=== PATIENT | female | born 1965 | race Caucasian/White ===

== ENCOUNTER 2020-03-04 11:54 | Outpatient (REF) | payer OTHER, SELFPAY ==
--- NOTE | 2020-03-04 | US_ITS ---
EXAMINATION: PELVIC ULTRASOUND CLINICAL INFORMATION: Fibroids. COMPARISON: Previous pelvic ultrasound most recent October [address] of the abdomen and pelvis September 2018. TECHNIQUE: Transabdominal and transvaginal pelvic ultrasound was performed. Transvaginal exam was performed for better visualization of the uterus and ovaries. FINDINGS: The uterus is anteverted and retroflexed. The uterus is slightly enlarged and measures 11.6 x 6 x 7.4 cm. There are multiple uterine fibroids seen. Comparison with previous exams is difficult. There is a 2.2 x 2.3 x 2.1 cm fibroid in the uterine fundus that appears unchanged. There is an 8 x 9 x 8 mm fibroid in the anterior uterine body that appears unchanged. There is a 1.8 x 1.6 x 1.8 cm fibroid in the fundus. This measured 2.9 x 3.6 x 4.1 cm and appears decreased compared to previous exam. There is a 0.9 x 0.8 x 0.8 cm fibroid in the posterior uterine body near the endometrium. This appears decreased from 1.1 x 1.6 x 1 cm on previous exam. There is a 4.1 x 3.4 x 4.9 cm subserosal posterior lower uterine segment fibroid. This appears increased from 3.1 x 2.9 x 2.6 cm on previous exam. There is a 2.1 x 1.8 x 1.9 fibroid in the anterior uterine fundus. This was not appreciated on prior exam. Several fibroids seen on October 2019 exam are not appreciated on the current exam. Endometrial thickness is normal estimated at 1.1 cm. There are nabothian cysts in the cervix. The right ovary is seen transabdominally and is normal-appearing. The right ovary measures 3.1 x 2.3 x 2.7 cm. The left ovary is not seen. There is no fluid in the pelvis. US/US pelvic complete IMPRESSION: Enlarged uterus with multiple uterine fibroids, at least 6. Comparison with previous exams is difficult. A new fibroid is seen and several previously identified fibroids are not appreciated. There may be interval increase in the largest subserosal posterior lower uterine segment fibroid. Left ovary not seen. Normal-appearing right ovary.
== END 2020-03-04 11:55 | disposition home or self-care (01) ==
LOC: HO.US 11:54
PROVIDERS: PCP Internal Medicine; Visit Provider Obstetrics & Gynecology
DX: D21.9 Benign neoplasm of connective and other soft tissue, unspecified (principal)
CPT/HCPCS: 76830; 76856

== ENCOUNTER → 2020-03-18 11:04 | Outpatient (BNVA) | payer OTHER, SELFPAY | PROVIDERS: Visit Provider Obstetrics & Gynecology | DX: Z76.89 Persons encountering health services in other specified circumstances (principal) ==

== ENCOUNTER 2020-04-02 10:29 | Outpatient (REF) | payer OTHER, SELFPAY ==
--- NOTE | 2020-04-02 10:34 | MM_ITS ---
EXAMINATION: MM SCREENING DIGITAL BREAST TOMOSYNTHESIS, BILATERAL CLINICAL INFORMATION: Screening. Asymptomatic. The lifetime risk of breast cancer based on the Tyrer-Cuzick Model is 7%. COMPARISON: Mammography: 03/31/2019, 03/25/2018, 04/02/2017, 03/12/2017, 03/07/2016, 01/18/2015 TECHNIQUE: Digital breast tomosynthesis is performed in both the craniocaudal and mediolateral oblique views along with computer-aided detection (CAD). Synthesized 2D images are generated from the tomosynthesis. Additional exaggerated right CC view is provided. FINDINGS: There are scattered areas of fibroglandular density (ACR BI-RADS breast composition Category b). There are no significant masses, abnormal calcifications, or other abnormalities. Parenchymal pattern is similar to prior studies. There is no developing density. The axilla and skin contours are unremarkable. MM/MM tomosynthesis screening BI IMPRESSION: No mammographic evidence of malignancy. ASSESSMENT: BI-RADS 1: Negative RECOMMENDATION: Routine annual mammography screening. This patient's information was entered into a reminder system with a target due date for their next mammogram.
== END 2020-04-02 10:30 | disposition home or self-care (01) ==
LOC: HO.MAMMO 10:29
PROVIDERS: PCP Internal Medicine; Visit Provider Internal Medicine
DX: Z12.31 Encounter for screening mammogram for malignant neoplasm of breast (principal)
CPT/HCPCS: 77063; 77067

== ENCOUNTER 2020-04-04 10:49 | Outpatient (REF) | payer OTHER, SELFPAY ==
--- NOTE | 2020-04-04 10:51 | MR_ITS ---
EXAMINATION: MRI PELVIS WITH AND WITHOUT CONTRAST CLINICAL INFORMATION: Other ovarian cyst, left side. COMPARISON: No pertinent priors currently available. TECHNIQUE: Multiple routine MRI sequences through the pelvis were obtained on a high-field 1.5 Reina MRI before and after the uneventful administration of 6.5 mL of Gadavist gadolinium-based IV contrast. FINDINGS: UTERUS: Anteverted uterus has a normal configuration and measures 10.0 x 6.4 x 9.0 cm ([id number] x anterior-posterior x transverse). The endometrium is at most 8 mm in thickness, distorted by multiple leiomyomata. The junctional zone is normal in thickness. As seen on prior imaging studies, there are multiple leiomyomata. Most are well-circumscribed, hypointense on T1, and enhance homogeneously similar or slightly less than adjacent myometrium. These include a 2.2 cm subserosal leiomyoma of the cephalad anterior uterine body, a 2.1 cm intramural/subserosal leiomyoma of the right uterine fundus, a 2.2 cm submucosal leiomyoma of the posterior uterine body, deforming the endometrial canal as well as some smaller subcentimeter intramural leiomyomata. There are 2 exophytic leiomyomata. This includes a 3.4 cm leiomyoma exophytic from the anterior aspect of the uterine fundus. In addition, there is a heterogeneous mixed hypointense and hyperintense T2 signal 5.1 x 5.7 x 5.8 cm leiomyoma exophytic from the lower uterine segment. Because of its location and size, its possible this exophytic left lower uterine segment leiomyoma was palpable on physical exam. This leiomyoma was seen on the prior study 09/16/2018 and measured 4 x 2.6 x 3.1 cm at that time. CERVIX: There are nabothian cysts in the cervix. The cervical stroma is otherwise normal in appearance. VAGINA: Normal; no mass seen. RIGHT OVARY: The right ovary measures 3.7 x 3.1 x 2.6 cm. Normal physiologic follicular cysts are present. No adnexal mass. LEFT OVARY: Normal-appearing left ovary seen adjacent the exophytic left lower uterine segment leiomyoma. This measures 2.1 x 1.7 x 2.0 cm, seen in axial image series 6 image 5 and coronal series 7 image . KIDNEYS: Two normally positioned kidneys are seen. No hydronephrosis. T2 bright likely simple cysts are present. BLADDER: Urinary bladder normal. PELVIC FREE FLUID: No free fluid or ascites. LYMPH NODES: No pathologically enlarged lymph nodes. OSSEOUS STRUCTURES: No acute or suspicious osseous abnormalities. MR/MR pelvis wo/w con IMPRESSION: Normal-appearing ovaries bilaterally. The endometrial canal measures at most 8 mm. This is normal for a reproductive age female patient and is also within normal limits for a postmenopausal female patient without vaginal bleeding. Multiple leiomyomata are present including a 5.1 x 5.7 x 5.8 cm leiomyoma exophytic from the lower uterine segment. Because of its location and size, its possible this exophytic left lower uterine segment leiomyoma was palpable on physical exam. This leiomyoma was seen on the prior study 09/16/2018 and measured 4 x 2.6 x 3.1 cm at that time.
== END 2020-04-04 10:50 | disposition home or self-care (01) ==
LOC: HO.MRI 10:49
PROVIDERS: Visit Provider Obstetrics & Gynecology
DX: N83.292 Other ovarian cyst, left side (principal)
CPT/HCPCS: 72197; A9585

== ENCOUNTER 2020-04-16 13:40 | Outpatient (REF) | payer OTHER, SELFPAY | END 2020-04-16 13:41 | disposition home or self-care (01) | LOC: HO.LAB 13:40 | PROVIDERS: PCP Internal Medicine; Visit Provider Internal Medicine | DX: Z20.828 Contact with and (suspected) exposure to other viral communicable diseases (principal) | CPT/HCPCS: 36415; C9803; U0003 ==

== ENCOUNTER → 2020-04-25 11:49 | Outpatient (BNVA) | payer OTHER, SELFPAY | PROVIDERS: PCP Internal Medicine; Visit Provider Obstetrics & Gynecology | DX: Z76.89 Persons encountering health services in other specified circumstances (principal) ==

== ENCOUNTER 2020-05-01 10:43 | Outpatient (REF) | payer OTHER, SELFPAY ==
[2020-05-01 11:34] LABS: MANUAL DIFF FLAG NO
[2020-05-01 11:40] LABS: Glucose Urine UA NEG (NEG); Leukocyte Esterase Urine NEG (NEG); Nitrite Urine POS (NEG); Specific Gravity - Urine 1.025 (1.005-1.025); Urine Blood TRACE (NEG); Urine Ketones NEG (NEG); Urine Protein NEG (NEG-TRACE)
[2020-05-01 11:43] LABS: Appearance Urine HAZY; Color Urine YELLOW
[2020-05-01 11:45] LABS: Basophils Percent Auto 0.3 % (0-2); Eosinophils Percent Auto 0.2 % (0-4); Hemoglobin 13.1 g/dl (12.0-16.0); Imm Gran Abs Auto 0.02 X10*3/uL (0.00-0.03); Imm Gran Pct Auto 0.2 % (0.0-0.4); Lymphocytes Absolute Auto 1.5 X10*3/uL (1.2-4.9); Lymphocytes Percent Auto 14.3 % (20-40); Mean Corpuscular HGB Conc 32.8 g/dl (31.0-35.0); Mean Corpuscular Hemoglobin 29.4 pg (27.0-33.0); Mean Corpuscular Volume 89.9 fL (80-98); Mean Platelet Volume 11.9 fL (9.4-12.3); Monocytes Absolute Auto 0.5 X10*3/uL (0.1-1.2); Monocytes Percent Auto 4.5 % (2-11); Neutrophils Absolute Auto 8.4 X10*3/uL (2.0-8.3); Neutrophils Percent Auto 80.5 % (45-73); Platelet Count 233 X10*3/uL (160-400); Red Blood Count 4.45 X10*6/uL (4.20-5.50); Red Cell Distribution Width 13.3 % (11.0-16.0); White Blood Count 10.4 X10*3/uL (4.8-10.8)
[2020-05-01 12:00] LABS: Bacteria Urine 3+ /LPF; Squamous Epithelial Cell Urine 1+ /LPF
[2020-05-01 12:12] LABS: Alanine Aminotransferase 24 U/L (0-31); Albumin Level 4.4 g/dL (3.5-5.0); Alkaline Phosphatase 61 U/L (39-117); Aspartate Amino Transferase 16 U/L (5-31); Bilirubin Direct 0.2 mg/dL (0.0-0.5); Bilirubin Total 0.4 mg/dL (0.0-1.0); Total Protein 6.6 g/dL (6.5-8.0)
[2020-05-01 12:24] LABS: Alanine Aminotransferase 24 U/L (0-31); Albumin Level 4.4 g/dL (3.5-5.0); Alkaline Phosphatase 62 U/L (39-117); Anion Gap 13 (12-20); Aspartate Amino Transferase 15 U/L (5-31); Bilirubin Total 0.5 mg/dL (0.0-1.0); Blood Urea Nitrogen 20 mg/dL (9-16); Calcium 9.6 mg/dL (8.4-10.2); Carbon Dioxide 24 mmol/L (22-29); Chloride 105 mmol/L (96-108); Cholesterol 165 mg/dL; Estimated Glomerular Filt Rate > 60; Glucose Random 86 mg/dL (60-115); HDL Cholesterol 42 mg/dL; LDL Cholesterol Calculated 109 mg/dl; Potassium 4.2 mmol/l (3.3-5.1); Sodium 138 mmol/L (135-145); Total Protein 6.8 g/dL (6.5-8.0); Triglycerides 74 mg/dL
[2020-05-01 12:32] LABS: Free T4 (Free Thyroxine) 0.91 ng/dL (0.71-1.85); Thyroid Stimulating Hormone 1.17 uIU/mL (0.32-4.0); Vitamin D 25-OH Total 45.6 ng/mL (>30)
[2020-05-01 12:49] LABS: Folate 19.4 ng/mL (> or = 4.0); Vitamin B12 461 pg/mL (200-900)
== END 2020-05-01 10:44 | disposition home or self-care (01) ==
LOC: HO.LAB 10:43
PROVIDERS: PCP Internal Medicine; Visit Provider Psychiatry & Neurology Neurology
DX: G35 Multiple sclerosis (principal); E78.00 Pure hypercholesterolemia, unspecified
CPT/HCPCS: 36415; 80053; 80061; 80076; 81001; 82248; 82306; 82607; 82746; 84439; 84443; 85025

== ENCOUNTER 2020-06-17 15:47 | Outpatient (REF) | payer OTHER, SELFPAY ==
--- NOTE | ~2020-06-17 | MR_ITS ---
MRI OF THE BRAIN WITHOUT IV CONTRAST INDICATION: Multiple sclerosis. COMPARISON: Brain MRI 11/16/2017. TECHNIQUE: Multiplanar multisequence MR imaging of the brain was obtained without IV contrast. FINDINGS: Similar pattern extensive lesional burden throughout the supratentorial periventricular and subcortical white matter and to a lesser extent the infratentorial brain in keeping with the history of multiple sclerosis. No definite new lesions accounting for technical differences. Multiple chronic low T1 signal intensity lesions are again noted. There is no hydrocephalus, extra-axial surface collection, or herniation. The major flow voids at the skull base are preserved. There is no acute infarct on diffusion-weighted imaging. There is no intracranial hemorrhage on the gradient recalled echo acquisition. The cerebellar tonsils are normally positioned. The craniocervical junction is normal. Osseous marrow signal intensity is homogenous. The visualized soft tissues are unremarkable. Large retention cysts within the inferior aspect of the left maxillary sinus. The remaining paranasal sinuses are clear. Small anterior right frontal scalp lipoma is again noted. MR/MR head/brain wo con IMPRESSION: - Similar pattern extensive lesional burden throughout the supratentorial periventricular and subcortical white matter and to a lesser extent the infratentorial brain in keeping with the history of multiple sclerosis. No definite new lesions accounting for technical differences. - Large retention cysts within the inferior aspect of the left maxillary sinus.
== END 2020-06-17 15:48 | disposition home or self-care (01) ==
LOC: HO.MRI 15:47
PROVIDERS: Visit Provider Psychiatry & Neurology Neurology
DX: G35 Multiple sclerosis (principal)
CPT/HCPCS: 70551

== ENCOUNTER 2020-10-30 10:27 | Outpatient (REF) | payer OTHER, SELFPAY ==
[2020-10-30 11:28] LABS: MANUAL DIFF FLAG NO
[2020-10-30 11:37] LABS: Basophils Percent Auto 0.5 % (0-2); Eosinophils Absolute Auto 0.1 X10*3/uL (0.0-0.4); Eosinophils Percent Auto 1.6 % (0-4); Hematocrit 40.2 % (37-47); Imm Gran Abs Auto 0.03 X10*3/uL (0.00-0.03); Imm Gran Pct Auto 0.5 % (0.0-0.4); Lymphocytes Absolute Auto 1.4 X10*3/uL (1.2-4.9); Lymphocytes Percent Auto 23.8 % (20-40); Mean Corpuscular HGB Conc 32.3 g/dl (31.0-35.0); Mean Corpuscular Hemoglobin 29.9 pg (27.0-33.0); Mean Corpuscular Volume 92.4 fL (80-98); Mean Platelet Volume 11.6 fL (9.4-12.3); Monocytes Absolute Auto 0.4 X10*3/uL (0.1-1.2); Monocytes Percent Auto 6.8 % (2-11); Neutrophils Absolute Auto 3.8 X10*3/uL (2.0-8.3); Neutrophils Percent Auto 66.8 % (45-73); Platelet Count 222 X10*3/uL (160-400); Red Blood Count 4.35 X10*6/uL (4.20-5.50); Red Cell Distribution Width 13.1 % (11.0-16.0); White Blood Count 5.8 X10*3/uL (4.8-10.8)
== END 2020-10-30 10:28 | disposition home or self-care (01) ==
LOC: HO.LAB 10:27
PROVIDERS: PCP Internal Medicine; Visit Provider Psychiatry & Neurology Neurology
DX: G35 Multiple sclerosis (principal)
CPT/HCPCS: 36415; 85025

== ENCOUNTER → 2021-01-29 09:44 | Outpatient (BNVA) | payer OTHER, SELFPAY | PROVIDERS: PCP Internal Medicine; Visit Provider Obstetrics & Gynecology ==

== ENCOUNTER 2021-01-29 10:49 | Outpatient (REF) | payer OTHER, SELFPAY ==
[2021-01-29 11:52] LABS: Hematocrit 38.2 % (37-47); Hemoglobin 12.4 g/dl (12.0-16.0); Mean Corpuscular HGB Conc 32.5 g/dl (31.0-35.0); Mean Corpuscular Hemoglobin 29.7 pg (27.0-33.0); Mean Corpuscular Volume 91.6 fL (80-98); Mean Platelet Volume 11.5 fL (9.4-12.3); Platelet Count 228 X10*3/uL (160-400); Red Blood Count 4.17 X10*6/uL (4.20-5.50); Red Cell Distribution Width 13.2 % (11.0-16.0); White Blood Count 7.7 X10*3/uL (4.8-10.8)
[2021-01-29 12:34] LABS: HCG Quantitative < 2 mIU/mL; TSH reflex Free T4 1.05 uIU/mL (0.32-4.0)
[2021-01-30 05:11] LABS: CT PCR NOT DETECTED (Not Detect.); NG PCR NOT DETECTED (Not Detect.)
[2021-02-01 01:36] LABS: HPV mRNA E6/E7 rflx Not Detected (Not Detected)
== END 2021-01-29 10:50 | disposition home or self-care (01) ==
LOC: HO.LAB 10:49
PROVIDERS: Visit Provider Obstetrics & Gynecology
DX: Z01.419 Encounter for gynecological examination (general) (routine) without abnormal findings (principal); N93.9 Abnormal uterine and vaginal bleeding, unspecified
CPT/HCPCS: 36415; 84443; 84702; 85027; 87491; 87591; 87624; 88142

== ENCOUNTER 2021-02-19 10:47 | Outpatient (REF) | payer OTHER, SELFPAY ==
--- NOTE | ~2021-02-19 | US_ITS ---
EXAMINATION: US PELVIC AND TRANSVAGINAL CLINICAL INFORMATION: Abnormal uterine and vaginal bleeding. COMPARISON: Previous pelvic MRI March 2020 and pelvic ultrasound most recent February 2020 TECHNIQUE: Ultrasound of the pelvis is performed using both transabdominal and transvaginal transducers along with Doppler. Transvaginal imaging is performed due to inadequate visualization transabdominally. FINDINGS: The uterus is anteverted and retroflexed and measures 11.5 x 6.4 x 7.6 cm in dimension. There are multiple focal uterine lesions suggestive of fibroids. Comparison of fibroids with prior exam exam is difficult. The largest measures 5.7 x 4.9 x 5.5 cm in the left uterine body/lower uterine segment. This measured 4.1 x 3.4 x 4.9 cm on prior ultrasound exam and 5.1 x 5.7 x 5.8 cm on previous MRI and is probably not appreciably changed.. There is a 2.7 x 1.7 x 2.5 cm fibroid in the anterior upper uterine body, 1.9 x 1.7 x 1.8 cm fibroid in the anterior uterine fundus, 1.3 x 0.8 x 1.2 cm fibroid in the posterior uterine fundus. There is an 8 x 5 x 9 mm anterior uterine body submucosal fibroid adjacent to the endometrium. There is question of a complex nabothian cyst versus a fibroid in the cervix measuring 1 x 0.9 x 1.1 cm. Endometrial thickness is normal measuring 1 cm. The right ovary measures 1.9 x 1.5 x 1.4 cm. There is a 1.4 x 1.1 x 1.2 cm simple right adnexal or paraovarian cyst. The left ovary measures 3.2 x 2.1 x 2.9 cm. There is a 1.8 x 1.3 x 1 cm complex cyst in the left ovary with low-level internal echoes probably representing a corpus luteum. There is a 1.6 x 1.4 x 1.7 cm simple left adnexal or paraovarian cyst. There is a small amount of fluid in the pelvis. US/US pelvic and transvaginal IMPRESSION: Enlarged fibroid uterus. Comparison of fibroids with prior exams is difficult. Largest fibroid measures 5.7 x 4.9 x 5.5 cm in the left uterine body/lower uterine segment. Normal thickness endometrium. Bilateral small simple adnexal or paraovarian cysts which are new from previous exams..
== END 2021-02-19 10:48 | disposition home or self-care (01) ==
LOC: HO.US 10:47
PROVIDERS: Visit Provider Obstetrics & Gynecology
DX: N93.9 Abnormal uterine and vaginal bleeding, unspecified (principal)
CPT/HCPCS: 76830; 76856

== ENCOUNTER 2021-02-24 10:20 | Outpatient (REF) | payer OTHER, SELFPAY | END 2021-02-24 10:21 | disposition home or self-care (01) | LOC: HO.LAB 10:20 | PROVIDERS: PCP Internal Medicine; Visit Provider Obstetrics & Gynecology | DX: N93.9 Abnormal uterine and vaginal bleeding, unspecified (principal) | CPT/HCPCS: 58100; 88305 ==

== ENCOUNTER → 2021-03-12 11:04 | Outpatient (BNVA) | payer OTHER, SELFPAY | PROVIDERS: PCP Internal Medicine; Visit Provider Obstetrics & Gynecology | DX: N93.9 Abnormal uterine and vaginal bleeding, unspecified (principal); D21.9 Benign neoplasm of connective and other soft tissue, unspecified | CPT/HCPCS: 99212 ==

== ENCOUNTER 2021-04-07 10:13 | Outpatient (REF) | payer OTHER, SELFPAY ==
--- NOTE | ~2021-04-07 | MM_ITS ---
EXAMINATION: MM SCREENING DIGITAL BREAST TOMOSYNTHESIS, BILATERAL CLINICAL INFORMATION: Screening. Asymptomatic. The lifetime risk of breast cancer based on the Tyrer-Cuzick Model is 7%. COMPARISON: Mammography: 04/02/2020, 03/31/2019, 03/25/2018 TECHNIQUE: Digital breast tomosynthesis is performed in both the craniocaudal and mediolateral oblique views along with computer-aided detection (CAD). Synthesized 2D images are generated from the tomosynthesis. FINDINGS: There are scattered areas of fibroglandular density (ACR BI-RADS breast composition Category b). There are no significant masses, abnormal calcifications, or other abnormalities. Breast tissue composition borders on heterogeneously dense. Parenchymal pattern is similar to prior studies. MM/MM tomosynthesis screening BI IMPRESSION: No mammographic evidence of malignancy. ASSESSMENT: BI-RADS 1: Negative RECOMMENDATION: Routine annual mammography screening. This patient's information was entered into a reminder system with a target due date for their next mammogram.
== END 2021-04-07 10:14 | disposition home or self-care (01) ==
LOC: HO.MAMMO 10:13
PROVIDERS: PCP Internal Medicine; Visit Provider Obstetrics & Gynecology
DX: Z12.31 Encounter for screening mammogram for malignant neoplasm of breast (principal)
CPT/HCPCS: 77063; 77067

== ENCOUNTER 2021-08-20 11:24 | Outpatient (REF) | payer OTHER, SELFPAY ==
[2021-08-20 11:34] LABS: MANUAL DIFF FLAG NO
[2021-08-20 11:57] LABS: Basophils Percent Auto 0.6 % (0-2); Eosinophils Absolute Auto 0.1 X10*3/uL (0.0-0.4); Eosinophils Percent Auto 0.8 % (0-4); Hematocrit 37.9 % (37.0-47.0); Hemoglobin 12.4 g/dl (12.0-16.0); Imm Gran Abs Auto 0.01 X10*3/uL (0.00-0.03); Imm Gran Pct Auto 0.2 % (0.0-0.4); Lymphocytes Absolute Auto 1.4 X10*3/uL (1.2-4.9); Lymphocytes Percent Auto 22.9 % (20-40); Mean Corpuscular HGB Conc 32.7 g/dl (31.0-35.0); Mean Corpuscular Hemoglobin 29.4 pg (27.0-33.0); Mean Corpuscular Volume 89.8 fL (80.0-98.0); Mean Platelet Volume 11.2 fL (9.4-12.3); Monocytes Absolute Auto 0.4 X10*3/uL (0.1-1.2); Neutrophils Absolute Auto 4.3 x10*3/uL (2.0-8.3); Neutrophils Percent Auto 69.5 % (45-73); Platelet Count 225 X10*3/uL (160-400); Red Blood Count 4.22 X10*6/uL (4.20-5.50); Red Cell Distribution Width 13.4 % (11.0-16.0); White Blood Count 6.2 X10*3/uL (4.8-10.8)
[2021-08-20 12:21] LABS: Alanine Aminotransferase 12 U/L (0-31); Albumin Level 4.1 g/dL (3.5-5.0); Alkaline Phosphatase 67 U/L (39-117); Aspartate Amino Transferase 12 U/L (5-31); Bilirubin Direct 0.2 mg/dL (0.0-0.5); Bilirubin Total 0.4 mg/dL (0.0-1.0); Total Protein 6.7 g/dL (6.5-8.0)
== END 2021-08-20 11:25 | disposition home or self-care (01) ==
LOC: HO.LAB 11:24
PROVIDERS: Psychiatry & Neurology Neurology; PCP Internal Medicine; Visit Provider Internal Medicine
DX: G35 Multiple sclerosis (principal)
CPT/HCPCS: 36415; 80076; 85025

== ENCOUNTER 2021-10-01 09:44 | Outpatient (REF) | payer OTHER, SELFPAY ==
[2021-10-01 10:18] LABS: COVID-19 Test Positive (Negative); IDNOW Serial# 16C4AD1C
== END 2021-10-01 09:45 | disposition home or self-care (01) ==
LOC: HO.LAB 09:44
PROVIDERS: Visit Provider Internal Medicine
DX: Z20.822 Contact with and (suspected) exposure to COVID-19 (principal)
CPT/HCPCS: 87635; C9803

== ENCOUNTER 2021-11-13 13:47 | Outpatient (REF) | payer OTHER, SELFPAY ==
--- NOTE | ~2021-11-13 | US_ITS ---
EXAMINATION: US PELVIS CLINICAL INFORMATION: Abnormal uterine and vaginal bleeding. COMPARISON: None TECHNIQUE: Ultrasound of the pelvis is performed using both transabdominal and transvaginal transducers along with Doppler. Transvaginal imaging is performed due to inadequate visualization transabdominally. FINDINGS: UTERUS: The uterus is anteverted, retroflexed and measures 9.9 x 5.3 x 7.0 cm. The double wall endometrial thickness is 1.5 cm thick. The uterus is smooth in contour and has normal myometrial echogenicity. There are multiple uterine fibroids. 1. Lesion in the left mid body of uterus the largest measures 6.1 x 6.6 x 6.6 cm. Previously measured 5.7 x 4.9 x 5.5 cm. 2. Lesion in the posterior upper body of uterus measures 2.1 x 2.2 x 2.2 cm. It is new. 3. Lesion in the right fundal uterus measures 1.3 x 1.2 x 1.3 cm. Previously it measured 1.3 x 0.8 x 1.2 cm. 4. Lesion in the left fundus exophytic measures 2.8 x 2.1 x 2.4 cm. Previously measured 2.7 x 1.7 x 2.5 cm. 5. Lesion in the entry of fundus measures 2.6 x 2.4 x 2.6 cm. Previously it measured 1.9 x 1.7 x 1.8 cm. 6. Lesion in the lower left uterine body measures 3.2 x 2.8 x 3.1 cm. It is new. This could be two fibroids adjacent to each other or one lobulated fibroid. 7. Lesion in the anterior lower uterine segment measures 0.9 x 0.9 x 1.0 cm. Appears new. ADNEXA: Both ovaries are visualized. There is normal color flow to the adnexa. There is no ovarian torsion. There is no pelvic ascites or fluid collection. Right ovary measures 3.5 x 2.0 x 2.6 cm and volume 9.5 mL. There is an anechoic cyst measuring 1.6 x 1.5 x 1.6 cm. Medial to the ovary is a right paraovarian cyst measuring 1.2 x 0.8 x 1.1 cm. Previously right ovary measured 1.9 x 1.5 x 1.4 cm. There is a tubular anechoic structure in the adnexa question hydrosalpinx. The left ovary is seen transabdominally and measures 2.9 x 2.0 x 3.3 cm and volume 10.2 mL. There are 2 anechoic cysts measuring 1.1 x 1.2 x 1.2 cm and 0.7 x 0.7 x 1.4 cm. Previously left ovary measured 3.2 x 2.1 x 2.9 cm. There is no free fluid in cul-de-sac. US/US pelvic and transvaginal IMPRESSION: Multiple uterine fibroids some are new. Right ovarian cyst and a paraovarian cyst. Suspect small right hydrosalpinx. Multiple left ovarian cysts.
== END 2021-11-13 13:48 | disposition home or self-care (01) ==
LOC: HO.US 13:47
PROVIDERS: Visit Provider Obstetrics & Gynecology
DX: N93.9 Abnormal uterine and vaginal bleeding, unspecified (principal); D21.9 Benign neoplasm of connective and other soft tissue, unspecified
CPT/HCPCS: 76830; 76856

== ENCOUNTER 2021-12-17 11:00 | Outpatient (REF) | payer OTHER, SELFPAY ==
[2021-12-17 12:39] LABS: Hematocrit 40.2 % (37.0-47.0); Mean Corpuscular HGB Conc 32.3 g/dl (31.0-35.0); Mean Corpuscular Hemoglobin 29.1 pg (27.0-33.0); Mean Corpuscular Volume 90.1 fL (80.0-98.0); Mean Platelet Volume 10.9 fL (9.4-12.3); Platelet Count 215 X10*3/uL (160-400); Red Blood Count 4.46 X10*6/uL (4.20-5.50); Red Cell Distribution Width 14.1 % (11.0-16.0); White Blood Count 6.4 X10*3/uL (4.8-10.8)
[2021-12-17 13:26] LABS: HCG Quantitative < 2 mIU/mL; TSH reflex Free T4 1.27 uIU/mL (0.32-4.0)
[2021-12-17 18:49] LABS: CT PCR NOT DETECTED (Not Detect.); NG PCR NOT DETECTED (Not Detect.)
[2021-12-18 17:06] LABS: Follicle Stimulating Hormone 9.2 mIU/mL; Lutenizing Hormone 5.2 mIU/mL
== END 2021-12-17 11:01 | disposition home or self-care (01) ==
LOC: HO.LAB 11:00
PROVIDERS: PCP Internal Medicine; Visit Provider Obstetrics & Gynecology
DX: N93.9 Abnormal uterine and vaginal bleeding, unspecified (principal)
CPT/HCPCS: 36415; 58100; 81025; 83001; 83002; 84443; 84702; 85027; 87491; 87591; 88305; 99212

== ENCOUNTER 2021-12-17 13:24 | Outpatient (REF) | payer OTHER, SELFPAY | END 2021-12-17 13:25 | disposition home or self-care (01) | LOC: HO.LNP 13:24 | PROVIDERS: Visit Provider Obstetrics & Gynecology | DX: Z13.89 Encounter for screening for other disorder (principal) | CPT/HCPCS: 88305 ==

== ENCOUNTER → 2022-02-02 13:07 | Outpatient (BNVA) | payer OTHER, SELFPAY | PROVIDERS: PCP Internal Medicine; Visit Provider Obstetrics & Gynecology | DX: N93.9 Abnormal uterine and vaginal bleeding, unspecified (principal); D25.9 Leiomyoma of uterus, unspecified | CPT/HCPCS: 99212 ==

== ENCOUNTER 2022-04-09 09:50 | Outpatient (REF) | payer OTHER, SELFPAY ==
--- NOTE | ~2022-04-09 | MM_ITS ---
EXAMINATION: MM SCREENING DIGITAL BREAST TOMOSYNTHESIS, BILATERAL CLINICAL INFORMATION: Screening. Asymptomatic. The lifetime risk of breast cancer based on the Tyrer-Cuzick Model is 6.7%. COMPARISON: Mammography: April 07, 2021 and studies dating back to March 07, 2016 TECHNIQUE: Digital breast tomosynthesis is performed in both the craniocaudal and mediolateral oblique views along with computer-aided detection (CAD). Synthesized 2D images are generated from the tomosynthesis. FINDINGS: The breasts are heterogeneously dense, which may obscure small masses (ACR BI-RADS breast composition Category c). There are no significant masses, abnormal calcifications, or other abnormalities. MM/MM tomosynthesis screening BI IMPRESSION: No significant changes ASSESSMENT: BI-RADS 1: Negative RECOMMENDATION: Routine annual mammography screening. This patient's information was entered into a reminder system with a target due date for their next mammogram.
== END 2022-04-09 09:51 | disposition home or self-care (01) ==
LOC: HO.MAMMO 09:50
PROVIDERS: PCP Internal Medicine; Visit Provider Internal Medicine
DX: Z12.31 Encounter for screening mammogram for malignant neoplasm of breast (principal)
CPT/HCPCS: 77063; 77067

== ENCOUNTER 2022-06-02 16:42 | Outpatient (REF) | payer OTHER, SELFPAY ==
[2022-06-02 18:07] LABS: Influenza A PCR NEGATIVE (Negative); Influenza B PCR NEGATIVE (Negative); Resp Syncy Virus RNA Qual PCR NEGATIVE (Negative); SARS COV2 PCR INHOUSE NEGATIVE (Negative)
== END 2022-06-02 16:43 | disposition home or self-care (01) ==
LOC: HO.LNP 16:42
PROVIDERS: Visit Provider Internal Medicine
DX: Z20.822 Contact with and (suspected) exposure to COVID-19 (principal); R43.9 Unspecified disturbances of smell and taste
CPT/HCPCS: 0241U

== ENCOUNTER 2022-07-02 13:20 | Outpatient (REF) | payer OTHER, SELFPAY ==
[2022-07-02 13:29] LABS: MANUAL DIFF FLAG NO
[2022-07-02 14:04] LABS: Basophils Absolute Auto 0.1 X10*3/uL (0.0-0.2); Basophils Percent Auto 0.8 % (0-2); Eosinophils Absolute Auto 0.1 X10*3/uL (0.0-0.4); Hematocrit 41.6 % (37.0-47.0); Hemoglobin 13.7 g/dl (12.0-16.0); Imm Gran Abs Auto 0.02 X10*3/uL (0.00-0.03); Imm Gran Pct Auto 0.3 % (0.0-0.4); Lymphocytes Absolute Auto 1.9 X10*3/uL (1.2-4.9); Lymphocytes Percent Auto 30.9 % (20-40); Mean Corpuscular HGB Conc 32.9 g/dl (31.0-35.0); Mean Corpuscular Hemoglobin 29.8 pg (27.0-33.0); Mean Corpuscular Volume 90.6 fL (80.0-98.0); Mean Platelet Volume 11.6 fL (9.4-12.3); Monocytes Absolute Auto 0.4 X10*3/uL (0.1-1.2); Monocytes Percent Auto 6.9 % (2-11); Neutrophils Absolute Auto 3.7 x10*3/uL (2.0-8.3); Neutrophils Percent Auto 60.1 % (45-73); Platelet Count 238 X10*3/uL (160-400); Red Blood Count 4.59 X10*6/uL (4.20-5.50); Red Cell Distribution Width 12.5 % (11.0-16.0); White Blood Count 6.1 X10*3/uL (4.8-10.8)
[2022-07-02 14:48] LABS: Alanine Aminotransferase 13 U/L (0-31); Albumin Level 4.5 g/dL (3.5-5.0); Alkaline Phosphatase 65 U/L (39-117); Anion Gap 14 (12-20); Aspartate Amino Transferase 13 U/L (5-31); Bilirubin Total 0.7 mg/dL (0.0-1.0); Blood Urea Nitrogen 20 mg/dL (9-16); Calcium 10.1 mg/dL (8.4-10.2); Carbon Dioxide 25 mmol/L (22-29); Chloride 105 mmol/L (96-108); Cholesterol 198 mg/dL; Estimated Glomerular Filt Rate > 60; Glucose Random 73 mg/dL (60-115); HDL Cholesterol 48 mg/dL; LDL Cholesterol Calculated 136 mg/dl; Potassium 4.1 mmol/L (3.3-5.1); Sodium 140 mmol/L (135-145); Total Protein 6.9 g/dL (6.5-8.0); Triglycerides 70 mg/dL
[2022-07-02 15:02] LABS: Folate 15.5 ng/mL (> or = 4.0); Free T4 (Free Thyroxine) 0.91 ng/dL (0.71-1.85); Thyroid Stimulating Hormone 1.01 uIU/mL (0.32-4.0); Vitamin B12 593 pg/mL (200-900); Vitamin D 25-OH Total 64.7 ng/mL (>30)
== END 2022-07-02 13:21 | disposition home or self-care (01) ==
LOC: HO.LAB 13:20
PROVIDERS: PCP Internal Medicine; Visit Provider Internal Medicine
DX: E78.00 Pure hypercholesterolemia, unspecified (principal); R31.9 Hematuria, unspecified
CPT/HCPCS: 36415; 80053; 80061; 82306; 82607; 82746; 84439; 84443; 85025

== ENCOUNTER 2022-08-03 16:40 | Outpatient (REF) | payer OTHER, SELFPAY ==
--- NOTE | ~2022-08-03 | US_ITS ---
EXAMINATION: US PELVIS COMPLETE CLINICAL INFORMATION: Abnormal uterine bleeding COMPARISON: Pelvic ultrasound 11/13/2021 TECHNIQUE: Transabdominal and transvaginal imaging was performed. FINDINGS: The uterus is of normal size with multiple leiomyomas measuring 9.6 x 4.1 x 6.3 cm. A regular homogeneous endometrium is identified measuring 0.2 cm. A 1.2 cm hypoechoic lesion in the cervix without internal vascularity and possible increased through transmission may reflect a complex nabothian cyst previously 1.5 cm versus a cervical myoma. Multiple additional uterine myomas, difficult to accurately compare with prior given multiplicity. The largest include: A 2.1 cm intramural myoma in the left body of the uterus, previously 1.8 cm, a 2.1 cm submucosal myoma in the left fundus of the uterus, previously 2.8 cm, and a 5.6 cm transmural myoma in the left lower uterine segment, previously 6.6 cm. Few additional intramural and subserosal myomas measuring 1.5 cm or less are also seen, some may be new from prior. Both ovaries are of normal size and echogenicity. The right measures 2.0 x 1.1 x 1.6 cm for a volume of 1.8 mL. The left measures 1.6 x 1.0 x 1.4 cm for a volume of 1.2 mL. There is no pelvic free fluid. US/US pelvic and transvaginal IMPRESSION: Myomatous uterus, difficult to accurately compare to prior, with measurements as detailed above.
== END 2022-08-03 16:41 | disposition home or self-care (01) ==
LOC: HO.US 16:40
PROVIDERS: PCP Internal Medicine; Visit Provider Obstetrics & Gynecology
DX: D21.9 Benign neoplasm of connective and other soft tissue, unspecified (principal)
CPT/HCPCS: 76830; 76856

== ENCOUNTER → 2022-08-17 14:57 | Outpatient (BNVA) | payer OTHER, SELFPAY | PROVIDERS: PCP Internal Medicine; Visit Provider Obstetrics & Gynecology | DX: D25.9 Leiomyoma of uterus, unspecified (principal) | CPT/HCPCS: 99212 ==

== ENCOUNTER 2023-01-27 10:10 | Outpatient (AMB) | payer OTHER, SELFPAY ==
--- NOTE | 2023-01-27 12:38 | AM.OFFWIN_ITS ---
Intake Vital Signs 01/27/23 12:41 Height 5 ft 6 in Weight 135 lb BMI 21.8 BP 120/70 Blood Pressure Location Lt brachial Position Sitting Pulse 76 Pulse Source Pulse Oximeter Temp 96.2 F L Temp Source Temporal Artery Scan Pulse Oximetry (%) 98 Oxygen Delivery Method Room Air Intake Visit Reasons: EP Cough, Mucus, Sore throat (lobby) Intake Note: Pt is here c/o bad cough, chest congestion and sore throat for the past 3 days. Patient Tobacco Use Status: Former Tobacco user Allergies pineapple [PINEAPPLE] Allergy (Unknown, Verified 01/27/23 12:40) BLISTERS/SWELLING OF TONGUE Do you need a note to return to daycare/school/sports/work: No HPI EP Cough, Mucus, Sore throat (lobby) HPI Details 57-year-old [facility]day [facility] of nonproductive cough, nasal congestion, sore throat. Denies any fever or chills. Denies any known exposure to sick contacts. Has taken in-home COVID tests which were negative. Denies any shortness of breath or GI symptoms. [facility] Medical History Complex cyst of left ovary Ovarian cyst Hypercholesterolemia Insomnia Vitamin D deficiency Multiple sclerosis Surgical History History of surgery History of vaginal surgery Family History Father Acute CVA (cerebrovascular accident) Diabetes Mother No problems noted. Paternal Aunt Lung cancer Social History Housing: Apartment Alcohol intake: current Patient Tobacco Use Status: Former Tobacco user Tobacco use type: Cigarette Years Smoked: 2012 stopped e-Cigarette/Vaping Use: Never Used Second Hand Smoke Exposure: No Current occupational status: employed Cognitive needs: No Hearing needs: No Vision needs: Yes Female Reproductive History Menstrual Age of Menarche: 14 Review of Systems Const All systems reviewed & are unremarkable except as noted in HPI and below Physical Exam Vital Signs: Last Vital Signs Temp 96.2 F L 01/27/23 12:41 Pulse 76 01/27/23 12:41 BP 120/70 01/27/23 12:41 Pulse Ox 98 01/27/23 12:41 Oxygen Delivery Method Room Air 01/27/23 12:41 BMI result Body Mass Index 21.8 Const General: cooperative, healthy appearing and no acute distress HEENT Head: Yes normal to inspection Ears: hearing grossly normal bilaterally and TM's normal bilaterally General nose exam: Normal external nose present Face and sinus: Yes normal facial exam Mouth: Normal oral and palatal mucosa present Throat: Yes posterior oropharynx abnormal (Mild erythema) Neck Neck: Yes no lymphadenopathy Resp Effort & Inspection: normal respiratory effort Auscultation: clear to auscultation bilaterally Cardio Jugular venous distension: no JVD Palpation: normal PMI Rate: regular rate Rhythm: regular rhythm Skin General skin exam: no rashes or lesions noted Extrem General: Yes capillary refill normal and Yes no clubbing, cyanosis or edema Psych Appearance: grossly normal Mental Status: mental status grossly normal Speech and movement: Normal speech and movement present Results AMB Rapid Strep AMB Rapid Strep Negative Last Edit by Lisa Brand CMA on 01/27/23 12:55 Assessment & Plan Assessment & Plan (1) Viral upper respiratory infection: Code(s): J06.9 - Acute upper respiratory infection, unspecified Plan: Symptoms consistent with viral respiratory illness. Rapid strep was negative. We reviewed likely self-limiting nature of this illness. I have advised advise conservative measures with rest, hydration, [id number] Cold/flu medication, and I will prescribe her benzonatate to help the cough. We reviewed indications, use of this medication. If she does not improve with time and conservative measures, or if symptoms worsen or new symptoms develop, she should return to the clinic or PCP for further evaluation. She verbalizes understanding and agrees to plan. Orders: Orders AMB Rapid Strep Screen Today Z13.9 - Encounter for screening, unspecified Medications: New benzonatate 100 mg PO BID PRN 14 caps 0RF cough 7 days R05.9 - Cough, unspecified Coding Level of Care Code Est Pt Level 3 (13896) Diagnoses Viral upper respiratory infection J06.9
[2023-01-27 12:41] VITALS: BP 120/70; PULSE 76; TEMP 35.7; O2SAT 98; BMI 21.8
== END 2023-01-27 12:56 | disposition home or self-care (01) ==
PROVIDERS: PCP Internal Medicine; Visit Provider Nurse Practitioner Family
DX: J06.9 Acute upper respiratory infection, unspecified (principal); Z13.9 Encounter for screening, unspecified
CPT/HCPCS: 87880; 99213

== ENCOUNTER 2023-03-17 11:22 | Outpatient (REF) | payer OTHER, SELFPAY ==
--- NOTE | ~2023-03-17 | US_ITS ---
EXAMINATION: US PELVIS COMPLETE CLINICAL INFORMATION: Fibroids COMPARISON: Pelvic ultrasound 08/02/2022 TECHNIQUE: Transabdominal and transvaginal imaging was performed. FINDINGS: The uterus is enlarged with myomas measuring 11.1 x 4.9 x 6.9 cm. A regular homogeneous endometrium is identified measuring 1 cm. There are multiple uterine myomas including a 1.3 cm subserosal myoma in the posterior body, previously 1.2 cm, a 2.1 cm exophytic myoma of the left body of the uterus, previously 2.1 cm, a 2.5 cm intramural myoma in the left body of the uterus, previously 2.0 cm, a 2.2 cm submucosal myoma in the anterior left body of the uterus no from prior, and a 8.1 cm transmural myoma with a submucosal component in the left body of the uterus, previously 5.6 cm. Both ovaries are of normal size and echogenicity. The right measures 2.9 x 2.5 x 2.9 cm for a volume of 11 mL. The left measures 2.3 x 1.1 x 1.6 cm for a volume of 2.1 mL. There is no pelvic free fluid. US/US pelvic and transvaginal IMPRESSION: 1. Myomatous uterus with a dominant 8.1 cm transmural myoma with a submucosal component in the left body of the uterus, some of which are increased in size from prior others of which are similar and one of which is new as detailed above. 2. Normal sonographic appearance of the ovaries.
== END 2023-03-17 11:23 | disposition home or self-care (01) ==
LOC: HO.US 11:22
PROVIDERS: PCP Internal Medicine; Visit Provider Obstetrics & Gynecology
DX: D21.9 Benign neoplasm of connective and other soft tissue, unspecified (principal)
CPT/HCPCS: 76830; 76856

== ENCOUNTER 2023-05-08 09:07 | Outpatient (REF) | payer OTHER, SELFPAY | END 2023-05-08 09:08 | disposition home or self-care (01) | LOC: HO.MAMMO 09:07 | PROVIDERS: PCP Internal Medicine; Visit Provider Internal Medicine | DX: Z12.31 Encounter for screening mammogram for malignant neoplasm of breast (principal) | CPT/HCPCS: 77063; 77067 ==

== ENCOUNTER → 2023-05-08 09:15 | Outpatient (BNV) | payer OTHER, SELFPAY | PROVIDERS: PCP Internal Medicine; Visit Provider Radiology Diagnostic Radiology | DX: Z12.31 Encounter for screening mammogram for malignant neoplasm of breast (principal) | CPT/HCPCS: 77063; 77067 ==

== ENCOUNTER 2023-06-01 11:01 | Outpatient (AMB) | payer OTHER, SELFPAY ==
[2023-06-01 11:21] VITALS: BP 110/72; BMI 21.7
--- NOTE | 2023-06-01 11:21 | MHC.OFFVIS ---
Intake Vital Signs 06/01/23 11:21 Height 5 ft 6 in Weight 134 lb 7.712 oz BMI 21.7 BP 110/72 Intake Visit Reasons: Annual/Ultrasound follow up Intake Note: no concerns Manager Configuration Required: No Information Interpreted: non-clinical & clinical Principal Engineer: Principal Engineer Present (Zarina HATCH) Accompanied by: Self / Same As Patient Allergies pineapple [PINEAPPLE] Allergy (Unknown, Verified 06/01/23 11:22) BLISTERS/SWELLING OF TONGUE Post menopausal: Yes HPI HPI Comments History of Present Illness Details Presenting for annual exam. No complaints. No pelvic pressure, no vaginal bleeding or pelvic pain Last Pap/HPV was negative in 01/30 Last Mammogram was BI-RADS 1 in 06/05 The patient is due for a screening Colonoscopy Last pelvic ultrasound showed the following compared to ultrasound was done previously in 08/02: The uterus is enlarged with myomas measuring 11.1 x 4.9 x 6.9 cm. A regular homogeneous endometrium is identified measuring 1 cm. There are multiple uterine myomas including a 1.3 cm subserosal myoma in the posterior body, previously 1.2 cm, a 2.1 cm exophytic myoma of the left body of the uterus, previously 2.1 cm, a 2.5 cm intramural myoma in the left body of the uterus, previously 2.0 cm, a 2.2 cm submucosal myoma in the anterior left body of the uterus no from prior, and a 8.1 cm transmural myoma with a submucosal component in the left body of the uterus, previously 5.6 cm. Both ovaries are of normal size and echogenicity. The right measures 2.9 x 2.5 x 2.9 cm for a volume of 11 mL. The left measures 2.3 x 1.1 x 1.6 cm for a volume of 2.1 mL. There is no pelvic free fluid. [facility] Medical History Complex cyst of left ovary Ovarian cyst Hypercholesterolemia Insomnia Vitamin D deficiency Multiple sclerosis Surgical History History of surgery History of vaginal surgery Family History Father Acute CVA (cerebrovascular accident) Diabetes Mother No problems noted. Paternal Aunt Lung cancer Social History Housing: Apartment Alcohol intake: current Patient Tobacco Use Status: Former Tobacco user Tobacco use type: Cigarette Years Smoked: 2013 stopped e-Cigarette/Vaping Use: Never Used Second Hand Smoke Exposure: No Current occupational status: employed Cognitive needs: No Hearing needs: No Vision needs: Yes Female Reproductive History Menstrual Age of Menarche: 14 Menopause type: natural Date of last pap smear: 01/30/21 Date of Mammogram: 05/08/23 Review of Systems Const All systems reviewed & are unremarkable except as noted in HPI and below Card Reports as per HPI Resp Reports as per HPI GI Reports as per HPI and Reports no additional complaints Reports as per HPI Physical Exam Vital Signs: Last Vital Signs BP 110/72 06/01/23 11:21 BMI result Body Mass Index 21.7 Const General: cooperative, healthy appearing and comfortable Chest Chest palpation & inspection: normal inspection of the chest and normal palpation of entire chest wall Breast/axilla inspection: normal inspection of the breasts and normal inspection of the axillae Breast/axilla palpation: normal palpation of the breasts, normal palpation of the axillae and no axillary lymphadenopathy Resp Effort & Inspection: normal respiratory effort Auscultation: clear to auscultation bilaterally Percussion: percussion normal Cardio Palpation: normal PMI Rate: regular rate Rhythm: regular rhythm Heart sounds: no murmurs and no rubs Peripheral pulses: Peripheral pulses 2+ throughout GI Inspection: Yes normal to inspection Palpation (GI): Soft to palpation, nontender, no guarding, not rigid and No hepatosplenomegaly present Percussion: Yes normal to percussion Auscultation: normal bowel sounds Rectal Exam - Female: deferred General: Yes bladder normal to palpation External Female Exam: No lesion Speculum Exam - Vagina: normal appearance of the vagina, normal palpation, normal vaginal discharge and not erythematous Speculum Exam - Cervix: normal appearance of the cervix and normal palpation Bimanual exam- vagina & uterus: normal bimanual exam, normal palpation, uterine size normal, bladder normal to palpation, consistency normal and normal palpation Bimanual Exam- Adnexa, other: normal adnexae, no masses and no tenderness Assessment & Plan Assessment & Plan (1) Well woman exam: Code(s): Z01.419 - Encounter for gynecological examination (general) (routine) without abnormal findings Plan: Co testing not indicated this year. Counseled the patient about the recommended dietary allowance of 1200 mg of Calcium & 600 IU of vitamin D. Instructions given to patient to schedule next screening Mammogram in 06/06. The patient was referred to GI for screening colonoscopy . The patient was instructed to perform monthly self-breast exams and schedule annual exam in a year. All questions answered and the patient verbalized understanding. (2) Myoma: Comment: Enlarging in menopause Code(s): D21.9 - Benign neoplasm of connective and other soft tissue, unspecified Plan: Discussed with the patient the findings on pelvic ultrasound & the risk of myosarcoma; discussed with the patient the options of treatment including expectant management versus hysterectomy; the pros and cons, risks benefits of each approach were discussed with the patient who decided to proceed with surgical management. Will refer to [facility] for further management. Orders: Referrals Gastroenterology Referral Z12.11 - Encounter for screening for malignant neoplasm of colon Gynecologic Oncology Referral D21.9 - Benign neoplasm of connective and other soft tissue, unspecified Coding Level of Care Code Est Pt Prev Care 40-64y(78652) Diagnoses Well woman exam Z01.419 Myoma D21.9
== END 2023-06-01 11:48 | disposition home or self-care (01) ==
LOC: HO.HWS 11:01
PROVIDERS: PCP Internal Medicine; Visit Provider Obstetrics & Gynecology
DX: Z01.419 Encounter for gynecological examination (general) (routine) without abnormal findings (principal); D21.9 Benign neoplasm of connective and other soft tissue, unspecified
CPT/HCPCS: 99396

== ENCOUNTER → 2023-06-01 11:01 | Outpatient (BNVA) | payer OTHER, SELFPAY | PROVIDERS: PCP Internal Medicine; Visit Provider Obstetrics & Gynecology | DX: Z01.419 Encounter for gynecological examination (general) (routine) without abnormal findings (principal); D21.9 Benign neoplasm of connective and other soft tissue, unspecified | CPT/HCPCS: 99396 ==

== ENCOUNTER 2023-06-17 13:50 | Outpatient (AMB) | payer OTHER, SELFPAY ==
--- NOTE | 2023-06-17 13:55 | A.OFFVIS_ITS ---
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 The patient was counseled about different options of treatment including expectant management(six-month ultrasound follow-up) and surgical treatment, the patient elected to proceed with expectant management since she has no abnormal uterine bleeding and no bulk symptoms. In March of 2023 pelvic ultrasound showed endometrial thickness of 1 cm so EMB was done and the pathology breast at [facility] came back as the following: Endometrium with tubal change and small focus of crowded glands with altered cytological features which raises the possibility of endometrial intraoperative neoplasia, endometrial curettage was recommended [facility] Medical History Complex cyst of left ovary Ovarian cyst Hypercholesterolemia Insomnia Vitamin D deficiency Multiple sclerosis Surgical History History of surgery History of vaginal surgery Family History Father Acute CVA (cerebrovascular accident) Diabetes Mother No problems noted. Paternal Aunt Lung cancer Social History Housing: Apartment Alcohol intake: current Patient Tobacco Use Status: Former Tobacco user Tobacco use type: Cigarette Years Smoked: 2012 stopped e-Cigarette/Vaping Use: Never Used Second Hand Smoke Exposure: No Current occupational status: employed Cognitive needs: No Hearing needs: No Vision needs: Yes Female Reproductive History Menstrual Age of Menarche: 14 Date of last menstrual period: 02/08/20 Total pregnancies: 2 Full term: 2 Review of Systems Card Reports as per HPI and Reports no additional complaints Resp Reports as per HPI and Reports no additional complaints GI Reports as per HPI and Reports no additional complaints Reports as per HPI Physical Exam Vital Signs: Last Vital Signs BP 110/70 06/17/23 13:58 BMI result Body Mass Index 21.7 Const General: cooperative, healthy appearing and comfortable Chest Chest palpation & inspection: normal inspection of the chest and normal palpation of entire chest wall Breast/axilla inspection: normal inspection of the breasts and normal inspection of the axillae Breast/axilla palpation: normal palpation of the breasts, normal palpation of the axillae and no axillary lymphadenopathy Resp Effort & Inspection: normal respiratory effort Auscultation: clear to auscultation bilaterally Percussion: percussion normal Cardio Palpation: normal PMI Rate: regular rate Rhythm: regular rhythm Heart sounds: no murmurs and no rubs Peripheral pulses: Peripheral pulses 2+ throughout GI Inspection: Yes normal to inspection Palpation (GI): Soft to palpation, nontender, no guarding, not rigid and No hepatosplenomegaly present Percussion: Yes normal to percussion Auscultation: normal bowel sounds Rectal Exam - Female: deferred Assessment & Plan Assessment & Plan (1) Myoma: Comment: Enlarging Code(s): D21.9 - Benign neoplasm of connective and other soft tissue, unspecified Plan: The patient had a consult with [facility] regarding growing myomas and elected to proceed with expectant management, the plan is to repeat ultrasound in 6 months and an ultrasound follow-up appointment to be scheduled with Dr. Richardson (2) Endometrial intraepithelial neoplasia (EIN): Comment: EMB pathology suspicious of EIN Code(s): N85.02 - Endometrial intraepithelial neoplasia [EIN] Plan: Discussed with the patient the pathology showing signs of possible E IN, recommended hysteroscopy D&C possible polypectomy myomectomy. Discussed with the patient the procedure , all benefits and risks including but not limited to inability to complete the procedure , insufficient endometrial tissue for a complete evaluation of the endometrial cavity , bleeding, infection, possible need for blood transfusion with all its risk ( HIV,syphilis, Hepatitis, anaphylaxis shock, others..), injury to bladder, rectum, possible need for laparoscopy/laparotomy or hysterectomy. The patient verbalized understanding and signed the consent. Instructions given the patient to schedule a 2 week postoperative appointment Coding Level of Care Code Est Pt Level 3 (69822) Diagnoses Myoma D21.9 Endometrial intraepithelial neoplasia (EIN) N85.02
[2023-06-17 13:58] VITALS: BP 110/70; BMI 21.7
== END 2023-06-17 15:53 | disposition home or self-care (01) ==
PROVIDERS: PCP Internal Medicine; Visit Provider Obstetrics & Gynecology
DX: D21.9 Benign neoplasm of connective and other soft tissue, unspecified (principal); N85.02 Endometrial intraepithelial neoplasia [EIN]
CPT/HCPCS: 99213

== ENCOUNTER → 2023-06-17 13:50 | Outpatient (BNVA) | payer OTHER, SELFPAY | PROVIDERS: PCP Internal Medicine; Visit Provider Obstetrics & Gynecology | DX: N85.02 Endometrial intraepithelial neoplasia [EIN] (principal) | CPT/HCPCS: 99212 ==

== ENCOUNTER 2023-06-23 08:15 | Day surgery (SDC) | payer OTHER, SELFPAY ==
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
[2023-06-23 09:16] VITALS: BMI 23.6
[2023-06-23 09:18] VITALS: BP 113/55; PULSE 72; RESP 18; TEMP 36.4; O2SAT 99
[2023-06-23] MEDS: Lactated Ringers 1,000 ML 100 ML IVCONT (09:37)
[2023-06-23 10:05] LABS: UPreg QC Valid YES; Urine Pregnancy NEGATIVE (NEGATIVE)
--- NOTE | 2023-06-23 10:30 | MHC.SHP ---
Pre-Procedural Eval Section A - 24 Hr Update-Section A only Date of Service: 06/23/23 The patient is an INPATIENT: No Changes since office visit: No Cold of Flu in the past 2 weeks, No New Medical Problems, No Changes in Medication and No Patient answered all questions The patient has been examined within 24 hours of the surgical procedure. The History & Physical has been completed within 30 days and I have reviewed it.: Yes Section B - Complete if H&P > 30 days Chief Complaint: Abnormal uterine and vaginal bleeding, Allergies: Allergies Allergy/AdvReac Type Severity Reaction Status Date / Time pineapple [PINEAPPLE] Allergy Unknown BLISTERS/SWELLING Verified 06/01/23 11:22 OF TONGUE Plan Diagnosis/Plan: Unchanged I have reviewed the history and physical and performed a pertinent physical examination on my patient. No changes have occurred unless specified. Time Spent With Patient Time: Total time managing care of this patient today ____ minutes.
[2023-06-23 11:08] VITALS: BP 110/60; PULSE 63; RESP 12; TEMP 36.1; O2SAT 100
--- NOTE | 2023-06-23 11:08 | P.BOP_ITS ---
Brief Operative Note Date of Service: 06/23/23 Pre-op diagnosis: Thickened endometrium by ultrasound EMB pathology suspicious of EIN Post-op diagnosis: same (Normal endometrial cavity ) Procedure: Hysteroscopy D&C Surgeon: Vinh Godinez MD Anesthesia: GLMA Was an Internal Medicine Physician used for this Procedure?: No Estimated blood loss (mL): 0 Pathology: other (Endometrial Scrapping. ) Condition: stable Disposition: PACU
--- NOTE | 2023-06-23 11:09 | W.PM.OPN ---
Operative Note Operative Note Date of Service: 06/23/23 Narrative: Preop Diagnosis: Thickened endometrium by ultrasound, endometrial pathology suspicious of EIN Operation: Diagnostic Hysteroscopy, Dilataion & Curettage Post Op Diagnosis: Normal endometrial and endocervical cavity, no evidence of pathology QBL: Minimal Anesthesia: GLMA Surgeon: Vinh Godinez MD Pulpwood Contractor: None Complication: None Pathology: Endometrial Scrapings Procedure: The patient was put in the dorsal lithotomy position, scrubbed, and draped in the usual manner. A sterile speculum was inserted in the patient's vagina. The anterior lip of the cervix was grasped with a single tooth tenaculum. The cervix was dilated up to 5 mm, then the scope was inserted in the patient's uterus. Inspection revealed normal endocervical & endometrial cavity with no evidence of pathology. The scope was taken out of the uterine cavity , then sharp curetting was carried on with no complications. At the end of the procedure, all instruments were taken out of the patient uterine and vaginal cavity. The single tooth tenaculum was removed and homeostasis was assured using pressure. The patient tolerated the procedure well and was transferred to the PACU in a stable condition.
[2023-06-23 11:23] VITALS: BP 109/47; PULSE 75; RESP 16; TEMP 36.6; O2SAT 98
== END 2023-06-23 12:03 | disposition home or self-care (01) ==
PROVIDERS: PCP Internal Medicine; Visit Provider Obstetrics & Gynecology
PROC: 0UDB8ZZ Extraction of Endometrium, Via Natural or Artificial Opening Endoscopic (ICD-10-PCS; CPT 58558; principal; 2023-06-23 10:30)
DX: N93.9 Abnormal uterine and vaginal bleeding, unspecified (principal); D21.9 Benign neoplasm of connective and other soft tissue, unspecified; G35 Multiple sclerosis; N85.02 Endometrial intraepithelial neoplasia [EIN]; E78.00 Pure hypercholesterolemia, unspecified; E55.9 Vitamin D deficiency, unspecified; N83.202 Unspecified ovarian cyst, left side; Z87.891 Personal history of nicotine dependence
CPT/HCPCS: 58558; 81025; 88305; J1885; J2250; J2704; J3010

== ENCOUNTER → 2023-06-23 08:15 | Outpatient (BNV) | payer OTHER, SELFPAY | PROVIDERS: PCP Internal Medicine; Visit Provider Obstetrics & Gynecology | DX: N93.9 Abnormal uterine and vaginal bleeding, unspecified (principal) | CPT/HCPCS: 58558 ==

== ENCOUNTER 2023-07-01 13:28 | Outpatient (AMB) | payer OTHER, SELFPAY ==
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
[2023-07-01 13:32] VITALS: BP 110/66; BMI 21.6
== END 2023-07-01 13:52 | disposition home or self-care (01) ==
PROVIDERS: PCP Internal Medicine; Visit Provider Obstetrics & Gynecology
DX: N93.9 Abnormal uterine and vaginal bleeding, unspecified (principal)
CPT/HCPCS: 99213

== ENCOUNTER → 2023-07-01 13:28 | Outpatient (BNVA) | payer OTHER, SELFPAY | PROVIDERS: PCP Internal Medicine; Visit Provider Obstetrics & Gynecology | DX: N93.9 Abnormal uterine and vaginal bleeding, unspecified (principal) | CPT/HCPCS: 99212 ==

== ENCOUNTER 2023-08-13 10:53 | Outpatient (AMB) | payer OTHER, SELFPAY ==
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
[2023-08-13 11:00] VITALS: BP 113/69; BMI 22.8
== END 2023-08-13 12:11 | disposition home or self-care (01) ==
PROVIDERS: PCP Internal Medicine; Visit Provider Nurse Practitioner Family
DX: Z12.11 Encounter for screening for malignant neoplasm of colon (principal); Z01.818 Encounter for other preprocedural examination
CPT/HCPCS: 99203

== ENCOUNTER → 2023-08-13 10:53 | Outpatient (BNVA) | payer OTHER, SELFPAY | PROVIDERS: PCP Internal Medicine; Visit Provider Nurse Practitioner Family | DX: Z01.818 Encounter for other preprocedural examination (principal) | CPT/HCPCS: 99202 ==

== ENCOUNTER 2023-08-19 12:58 | Outpatient (AMB) | payer OTHER, SELFPAY ==
[2023-08-19 12:59] VITALS: BP 110/60; BMI 22.4
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
== END 2023-08-19 13:40 | disposition home or self-care (01) ==
LOC: HO.HWS 12:58
PROVIDERS: PCP Internal Medicine; Visit Provider Obstetrics & Gynecology
DX: N85.02 Endometrial intraepithelial neoplasia [EIN] (principal); D25.9 Leiomyoma of uterus, unspecified
CPT/HCPCS: 58100; 99213

== ENCOUNTER 2023-08-19 12:58 | Outpatient (REF) | payer OTHER, SELFPAY | END 2023-08-19 12:59 | disposition home or self-care (01) | LOC: HO.LNP 12:58 | PROVIDERS: PCP Internal Medicine; Visit Provider Obstetrics & Gynecology | DX: N85.02 Endometrial intraepithelial neoplasia [EIN] (principal) | CPT/HCPCS: 58100; 88305; 99212 ==

== ENCOUNTER 2023-08-26 16:24 | Outpatient (REF) | payer OTHER, SELFPAY ==
--- NOTE | ~2023-08-26 | US_ITS ---
EXAMINATION: US PELVIS CLINICAL INFORMATION: Leiomyomas. COMPARISON: Ultrasound pelvis 03/17/2023. TECHNIQUE: Ultrasound of the pelvis is performed using both transabdominal and transvaginal transducers along with Doppler. Transvaginal imaging is performed due to inadequate visualization transabdominally. FINDINGS: Uterus: The uterus is anteverted and measures 11.7 x 5.7 x 5.8 cm for a volume of 202 mL. Prior uterine volume was about the same at 197 mL. The double wall endometrial thickness is 3 mm. Three uterine fibroids are seen on the left of the uterus, the largest measuring 8.7 x 6.5 x 6.8 cm (previously 7.3 x 4.9 x 8.1 cm). The other 2 measure 2.6 and 2.0 cm. Compared to the prior study, these fibroids have increased in size slightly. Adnexa: Neither ovary could be seen. No free fluid seen in the cul-de-sac. US/US pelvic and transvaginal IMPRESSION: Uterine fibroids have increased in size slightly.
== END 2023-08-26 16:25 | disposition home or self-care (01) ==
LOC: HO.US 16:24
PROVIDERS: PCP Internal Medicine; Visit Provider Obstetrics & Gynecology
DX: D21.9 Benign neoplasm of connective and other soft tissue, unspecified (principal)
CPT/HCPCS: 76830; 76856

== ENCOUNTER 2023-09-15 12:56 | Outpatient (AMB) | payer OTHER, SELFPAY ==
[2023-09-15 13:00] VITALS: BP 124/76; BMI 22.4
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
== END 2023-09-15 13:47 | disposition home or self-care (01) ==
PROVIDERS: PCP Internal Medicine; Visit Provider Obstetrics & Gynecology
DX: N93.9 Abnormal uterine and vaginal bleeding, unspecified (principal); D21.9 Benign neoplasm of connective and other soft tissue, unspecified
CPT/HCPCS: 99213

== ENCOUNTER → 2023-09-15 12:56 | Outpatient (BNVA) | payer OTHER, SELFPAY | PROVIDERS: PCP Internal Medicine; Visit Provider Obstetrics & Gynecology | DX: N93.9 Abnormal uterine and vaginal bleeding, unspecified (principal); D21.9 Benign neoplasm of connective and other soft tissue, unspecified | CPT/HCPCS: 99212 ==

== ENCOUNTER 2023-09-18 13:41 | Outpatient (AMB) | payer OTHER, SELFPAY ==
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
[2023-09-18 13:49] VITALS: BP 122/70; PULSE 72; TEMP 36.6; O2SAT 99; BMI 22.3
== END 2023-09-18 15:08 | disposition home or self-care (01) ==
PROVIDERS: PCP Internal Medicine; Visit Provider Physician Assistant Medical
DX: R20.0 Anesthesia of skin (principal); R20.2 Paresthesia of skin
CPT/HCPCS: 99051; 99214

== ENCOUNTER 2023-09-18 14:36 | Outpatient (REF) | payer OTHER, SELFPAY ==
--- NOTE | ~2023-09-18 | XR_ITS ---
EXAMINATION: XR HAND/WRIST, RIGHT CLINICAL INFORMATION: Right wrist and hand numbness for 2 weeks COMPARISON: None TECHNIQUE: PA, lateral, and oblique views of the right hand and wrist. FINDINGS: The bones and soft tissues are normal. No fracture. Alignment is anatomic. Joint spaces are maintained. No erosions or soft tissue calcifications. XR/XR hand wrist RT IMPRESSION: Normal radiographs of the hand and wrist.
== END 2023-09-18 14:37 | disposition home or self-care (01) ==
LOC: HO.HMGCX 14:36
PROVIDERS: PCP Internal Medicine; Visit Provider Physician Assistant Medical
DX: R20.8 Other disturbances of skin sensation (principal)
CPT/HCPCS: 73110; 73130

== ENCOUNTER 2023-10-16 09:22 | Outpatient (AMB) | payer OTHER, SELFPAY ==
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
[2023-10-16 09:25] VITALS: BP 118/80; PULSE 74; TEMP 36.9; O2SAT 98; BMI 23.1
== END 2023-10-16 10:31 | disposition home or self-care (01) ==
PROVIDERS: PCP Internal Medicine; Visit Provider Physician Assistant Medical
DX: H65.02 Acute serous otitis media, left ear (principal)
CPT/HCPCS: 99051; 99214

== ENCOUNTER 2023-10-16 15:16 | Outpatient (REF) | payer OTHER, SELFPAY ==
[2023-10-16 16:12] LABS: Influenza A PCR NEGATIVE (Negative); Influenza B PCR NEGATIVE (Negative); Resp Syncy Virus RNA Qual PCR NEGATIVE (Negative); SARS COV2 PCR INHOUSE NEGATIVE (Negative)
== END 2023-10-16 15:17 | disposition home or self-care (01) ==
LOC: HO.LNP 15:16
PROVIDERS: Visit Provider Physician Assistant Medical
DX: J06.9 Acute upper respiratory infection, unspecified (principal)
CPT/HCPCS: 0241U

== ENCOUNTER 2023-11-29 10:18 | Outpatient (AMB) | payer OTHER, SELFPAY ==
[2023-11-29 10:19] VITALS: BP 112/68; PULSE 71; O2SAT 98; BMI 22.8
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
== END 2023-11-29 10:58 | disposition home or self-care (01) ==
PROVIDERS: PCP Internal Medicine
DX: Z00.00 Encounter for general adult medical examination without abnormal findings (principal); G35 Multiple sclerosis; E78.00 Pure hypercholesterolemia, unspecified; D21.9 Benign neoplasm of connective and other soft tissue, unspecified; N85.02 Endometrial intraepithelial neoplasia [EIN]
CPT/HCPCS: 99396

== ENCOUNTER 2023-11-29 11:14 | Outpatient (REF) | payer OTHER, SELFPAY ==
[2023-11-29 11:43] LABS: MANUAL DIFF FLAG NO
[2023-11-29 12:00] LABS: Basophils Percent Auto 0.5 % (0-2); Eosinophils Percent Auto 0.7 % (0-4); Hematocrit 40.4 % (37.0-47.0); Hemoglobin 13.4 g/dl (12.0-16.0); Imm Gran Abs Auto 0.02 X10*3/uL (0.00-0.03); Imm Gran Pct Auto 0.3 % (0.0-0.4); Lymphocytes Absolute Auto 1.7 X10*3/uL (1.2-4.9); Lymphocytes Percent Auto 29.4 % (20-40); Mean Corpuscular HGB Conc 33.2 g/dl (31.0-35.0); Mean Corpuscular Hemoglobin 29.4 pg (27.0-33.0); Mean Corpuscular Volume 88.6 fL (80.0-98.0); Mean Platelet Volume 10.3 fL (9.4-12.3); Monocytes Absolute Auto 0.3 X10*3/uL (0.1-1.2); Monocytes Percent Auto 4.3 % (2-11); Neutrophils Absolute Auto 3.8 x10*3/uL (2.0-8.3); Neutrophils Percent Auto 64.8 % (45-73); Platelet Count 315 X10*3/uL (160-400); Red Blood Count 4.56 X10*6/uL (4.20-5.50); Red Cell Distribution Width 13.1 % (11.0-16.0); White Blood Count 5.9 X10*3/uL (4.8-10.8)
[2023-11-29 12:37] LABS: Alanine Aminotransferase 16 U/L (0-31); Albumin Level 4.5 g/dL (3.5-5.0); Alkaline Phosphatase 83 U/L (39-117); Anion Gap 11 (12-20); Aspartate Amino Transferase 14 U/L (5-31); Bilirubin Total 0.4 mg/dL (0.0-1.0); Blood Urea Nitrogen 19 mg/dL (9-16); Calcium 10.6 mg/dL (8.4-10.2); Carbon Dioxide 25 mmol/L (22-29); Chloride 109 mmol/L (96-108); Cholesterol 200 mg/dL (<200); Estimated Glomerular Filt Rate > 60; Glucose Random 97 mg/dL (60-115); HDL Cholesterol 38 mg/dL (>40); LDL Cholesterol Calculated 142 mg/dL (<100); Potassium 4.3 mmol/L (3.3-5.1); Sodium 141 mmol/L (135-145); Total Protein 7.2 g/dL (6.5-8.0); Triglycerides 103 mg/dL (<150)
[2023-11-29 12:48] LABS: Free T4 (Free Thyroxine) 0.81 ng/dL (0.71-1.85); TSH reflex Free T4 1.09 uIU/mL (0.32-4.0)
[2023-11-29 12:58] LABS: Folate 11.6 ng/mL (> or = 4.0); Vitamin B12 645 pg/mL (200-900)
[2023-12-04 13:34] LABS: Vitamin D 25-OH, D2 <4 ng/mL; Vitamin D 25-OH, D3 75 ng/mL; Vitamin D 25-OH, Total 75 ng/mL (30-100)
== END 2023-11-29 11:15 | disposition home or self-care (01) ==
LOC: HO.LAB 11:14
DX: Z00.00 Encounter for general adult medical examination without abnormal findings (principal)
CPT/HCPCS: 36415; 80053; 80061; 82306; 82607; 82746; 84439; 84443; 85025

== ENCOUNTER → 2024-01-28 11:47 | Outpatient (BNV) | payer OTHER, SELFPAY | PROVIDERS: PCP Internal Medicine; Visit Provider Internal Medicine Gastroenterology | DX: Z12.11 Encounter for screening for malignant neoplasm of colon (principal); Z86.0101 Personal history of adenomatous and serrated colon polyps; K63.5 Polyp of colon; K57.30 Diverticulosis of large intestine without perforation or abscess without bleeding | CPT/HCPCS: 45385 ==

== ENCOUNTER → 2024-01-28 11:47 | Day surgery (SDC) | payer OTHER, SELFPAY ==
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
[2024-01-28 13:33] VITALS: BMI 23.5
[2024-01-28 13:46] VITALS: BP 130/68; PULSE 69; RESP 16; TEMP 36.4; O2SAT 100
[2024-01-28] MEDS: Lactated Ringers 1,000 ML 100 ML IVCONT (13:51)
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
--- NOTE | 2024-01-28 14:49 | HO.OPN-COLON ---
Colonoscopy Operative Note Operative Note Date of Service: 01/28/24 Narrative: COLONOSCOPY TILL CECUM WITH SNARE POLYPECTOMY Pre-op diagnosis: Surveillance for colon polyps. Post-op diagnosis:? colon polyp, Diverticulosis, Endoscopist:? Floridalma Zayas MD Anesthesia:?MAC Consent: Indications for the procedure and potential complications of bleeding, perforation, reaction to medications and missed diagnosis were discussed with the patient and informed consent was obtained. Instrument: Olympus CF H 190 L variable stiffness adult colonoscope Monitoring: Vital signs and clinical assessment, intermittent blood pressure monitoring, continuous EKG monitoring, Pulse oximetry and Carbon Dioxide monitoring were done throughout the procedure. Please see anesthesia flowsheet. Colon withdrawl time was 23 minutes. Procedure: The patient was placed in the left lateral decubitis position and pre-procedure medications were administered. After a digital rectal examination of the ano-rectum, the video colonoscope was inserted into the rectum and advanced through the colon to the cecum. The colonoscope was slowly withdrawn in a retrograde panoramic fashion and the colon mucosa was carefully examined including a retroflexed view of the rectum. Findings and interventions are described below. Procedure Difficulty: Colon was long and tortuous and there was some loop formation Findings: Terminal Ileum: Not evaluated Cecum: Normal Ascending Colon: Normal Transverse Colon: Normal Descending Colon: A 10-12 mm sessile polyp at 70 cms - removed with a hot snare Sigmoid Colon: Moderate diverticulosis Rectum: Normal Ano-rectum: Normal Colon preparation: Good after copious irrigation. [place] Bowel Preparation Scale Right colon; 2 Transverse colon: 3 Left colon; 3 (0 = Unprepared colon segment with mucosa not seen due to solid stool that cannot be cleared. 1 = Portion of mucosa of the colon segment seen, but other areas of the colon segment not well seen due to staining, residual stool and/or opaque liquid. 2 = Minor amount of residual staining, small fragments of stool and/or opaque liquid, but mucosa of colon segment seen well. 3 = Entire mucosa of colon segment seen well with no residual staining, small fragments of stool or opaque liquid) Impression and Post Procedure Diagnosis: Colonoscopy Findings: One medium sized polyp was removed Moderate diverticulosis seen in the sigmoid colon Plan: I will send a letter with biopsy results Repeat Colonoscopy in 3-5 years if polyps are adenomatous and 10 year if polyps are hyperplastic. (Dulcolax 2 tab daily starting 5 days before next colon appointment) Above findings were reviewed with the patient and relevant handouts were given and the discharge area.
[2024-01-28 14:50] VITALS: BP 106/68; PULSE 86; RESP 16; TEMP 36.1; O2SAT 100
[2024-01-28 15:05] VITALS: BP 121/66; PULSE 84; RESP 16; TEMP 36.1; O2SAT 96
[2024-01-28 15:20] VITALS: BP 124/66; PULSE 68; RESP 16; TEMP 36.1; O2SAT 100
== END | disposition home or self-care (01) ==
PROVIDERS: PCP Internal Medicine; Visit Provider Internal Medicine Gastroenterology
PROC: 0DJD8ZZ Inspection of Lower Intestinal Tract, Via Natural or Artificial Opening Endoscopic (ICD-10-PCS; CPT 45378; principal; 2024-01-28 13:30)
DX: Z12.11 Encounter for screening for malignant neoplasm of colon (principal); K63.5 Polyp of colon; K56.2 Volvulus; K57.30 Diverticulosis of large intestine without perforation or abscess without bleeding; Z86.0101 Personal history of adenomatous and serrated colon polyps; E78.00 Pure hypercholesterolemia, unspecified; N85.02 Endometrial intraepithelial neoplasia [EIN]; G35 Multiple sclerosis; Z87.891 Personal history of nicotine dependence; Z79.899 Other long term (current) drug therapy
CPT/HCPCS: 45385; 88305; J2003; J2704

== ENCOUNTER 2024-03-25 11:26 | Outpatient (AMB) | payer OTHER, SELFPAY ==
[2024-03-25 11:35] VITALS: BP 122/70; PULSE 72; TEMP 36.6; O2SAT 98; BMI 23.4
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
== END 2024-03-25 12:11 | disposition home or self-care (01) ==
PROVIDERS: PCP Internal Medicine; Visit Provider Physician Assistant
DX: Z13.9 Encounter for screening, unspecified (principal); N30.01 Acute cystitis with hematuria

== ENCOUNTER → 2024-03-25 11:26 | Outpatient (BNVA) | payer OTHER, SELFPAY | PROVIDERS: PCP Internal Medicine; Visit Provider Physician Assistant | DX: N30.01 Acute cystitis with hematuria (principal) | CPT/HCPCS: 81003; 99212 ==

== ENCOUNTER 2024-05-23 10:09 | Outpatient (REF) | payer OTHER, SELFPAY | END 2024-05-23 10:10 | disposition home or self-care (01) | LOC: HO.MAMMO 10:09 | PROVIDERS: PCP Internal Medicine; Visit Provider Internal Medicine | DX: Z12.31 Encounter for screening mammogram for malignant neoplasm of breast (principal) | CPT/HCPCS: 77063; 77067 ==

== ENCOUNTER → 2024-05-23 10:15 | Outpatient (BNV) | payer OTHER, SELFPAY | PROVIDERS: PCP Internal Medicine; Visit Provider Internal Medicine | DX: Z12.31 Encounter for screening mammogram for malignant neoplasm of breast (principal) | CPT/HCPCS: 77063; 77067 ==

== ENCOUNTER 2024-10-24 08:34 | Outpatient (AMB) | payer OTHER, SELFPAY ==
[2024-10-24 08:39] VITALS: BP 128/80; BMI 25.2
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
== END 2024-10-24 09:27 | disposition home or self-care (01) ==
LOC: HO.HWS 08:35
PROVIDERS: PCP Internal Medicine; Visit Provider Obstetrics & Gynecology
DX: Z01.419 Encounter for gynecological examination (general) (routine) without abnormal findings (principal); D25.9 Leiomyoma of uterus, unspecified
CPT/HCPCS: 99213; 99396; 99459

== ENCOUNTER 2024-10-24 13:00 | Outpatient (REF) | payer OTHER, SELFPAY ==
--- NOTE | ~2024-10-24 | US_ITS ---
EXAMINATION: US PELVIS TRANSABDOMINAL AND TRANSVAGINAL HISTORY: D21.9 - Benign neoplasm of connective and other soft tissue, unspecified COMPARISON: Comparison is made with the prior examination dated 08/26/2023. TECHNIQUE: Transabdominal and endovaginal real-time 2D hall-scale ultrasound was performed. FINDINGS: Uterus: The uterus is enlarged, measuring 9.2 x 7.4 x 7.6 cm. Myometrium has a normal echotexture. Multiple fibroids are again identified. Comparison is somewhat difficult. The largest fibroid is in the left uterine body measuring 8.4 x 4.6 x 7.8 cm (previously 8.7 x 6.5 x 6.8 cm) there is a right fundal fibroid measuring 1.0 x 1.0 x 0.9 cm, a left posterior fibroid measuring 1.9 x 1.5 x 1.8 cm, and a right fundal fibroid measuring 1.5 x 1.9 x 1.7 cm. Endometrium: The endometrial stripe measures 3 mm in thickness. Right ovary: The right ovary is not identified. Left ovary: The left ovary measures 2.1 x 0.8 x 1.5 cm. The left ovary is normal in size and echotexture. Pelvic fluid: none. US/US pelvic and transvaginal IMPRESSION: Fibroid uterus as described. The right ovary is not identified. Electronically signed by: Sunil Frias MD 10/24/2024 02:39 PM EDT
== END 2024-10-24 13:01 | disposition home or self-care (01) ==
LOC: HO.US 13:00
PROVIDERS: PCP Internal Medicine; Visit Provider Obstetrics & Gynecology
DX: Z01.411 Encounter for gynecological examination (general) (routine) with abnormal findings (principal); D21.9 Benign neoplasm of connective and other soft tissue, unspecified
CPT/HCPCS: 76830; 76856; 99212; 99396

== ENCOUNTER → 2024-10-24 13:03 | Outpatient (BNV) | payer OTHER, SELFPAY | PROVIDERS: PCP Internal Medicine; Visit Provider Radiology Diagnostic Radiology | DX: D25.9 Leiomyoma of uterus, unspecified (principal) | CPT/HCPCS: 76830; 76856 ==

== ENCOUNTER 2024-10-31 09:35 | Outpatient (AMB) | payer OTHER, SELFPAY ==
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
== END 2024-10-31 09:47 | disposition home or self-care (01) ==
LOC: HO.HWS 09:36
PROVIDERS: PCP Internal Medicine; Visit Provider Obstetrics & Gynecology
DX: D21.9 Benign neoplasm of connective and other soft tissue, unspecified (principal)
CPT/HCPCS: 99213

== ENCOUNTER → 2024-10-31 09:35 | Outpatient (BNVA) | payer OTHER, SELFPAY | PROVIDERS: PCP Internal Medicine; Visit Provider Obstetrics & Gynecology | DX: Z71.2 Person consulting for explanation of examination or test findings (principal); D21.9 Benign neoplasm of connective and other soft tissue, unspecified | CPT/HCPCS: 99212 ==

== ENCOUNTER 2025-02-12 09:35 | Inpatient (IN) | payer OTHER, SELFPAY ==
--- NOTE | ~2025-02-12 | XR_ITS ---
EXAMINATION: XR CHEST CLINICAL INFORMATION: abnormal labs COMPARISON: None available. TECHNIQUE: 2 views of the chest were obtained. FINDINGS: There is no pneumothorax. Heart and mediastinal contours are within normal limits. Lungs are clear. There is no pleural effusion. XR/XR chest 2V IMPRESSION: No acute disease. Electronically signed by: Jose Velasco MD 02/12/2025 01:14 PM [facility]
--- NOTE | ~2025-02-12 | CT_ITS ---
CLINICAL HISTORY: meeting sepsis criteria CT abdomen and pelvis with contrast Comparison: US/SR - US PELVIS TRANSABDOMINAL AND TRANSVAGINAL - 10/24/24 13:23 EDT Findings: Bibasilar dependent subsegmental atelectasis. Right liver lobe posterior segment low-attenuation nonenhancing focus, 1 x 1.2 cm, axial image number 35 of 90. The spleen is homogeneous in attenuation. The gallbladder is within normal limits. Right renal cortical low-attenuation lesion, 1.6 cm, pole 0.9 cm, right interpolar region 1.2 cm, lower 1.9 cm; renal cysts. Right renal upper pole 0.3 cm, 0.6 x 0.2 cm, upper pole 0.2 cm nonobstructing nephroliths. Circum aortic left renal vein. No bowel obstruction, pneumoperitoneum, or pneumatosis. The appendix is within normal limits. The uterus is heterogeneous in enhancement and hypertrophic in asymmetric contour with a dominant lesion in the myometrium, 8 cm, right of midline exophytic subserosal 5.4 x 3.5 cm. Mild osteopenia. IMPRESSION: 1. Large uterine fibroid, 8 cm, with exophytic subserosal component , right of midline measuring 5.4 x 3.5 cm. 2. Multiple renal cysts, largest measuring 1.9 cm in the right lower pole. 3. 1.2 cm nonenhancing hypodense lesion in the right hepatic lobe, posterior segment; probable hepatic cysts. 4. Right renal nonobstructing nephroliths, largest measuring 0.6 x 0.2 cm. 5. No acute intraabdominal or pelvic pathology. This document has been electronically signed by: Homar Jaruegui MD on 02/12/2025 17:52:31
[2025-02-12 09:45] VITALS: BP 147/78; PULSE 120; RESP 16; TEMP 37; O2SAT 98; BMI 24.1
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
--- NOTE | 2025-02-12 09:54 | ECG_ITS ---
Test Reason : anxiety Blood Pressure : */* mmHG Vent. Rate : 123 BPM Atrial Rate : 123 BPM P-R Int : 162 ms QRS Dur : 98 ms QT Int : 312 ms P-R-T Axes : 55 73 28 degrees QTcB Int : 446 ms Sinus tachycardia Otherwise normal ECG No previous ECGs available Referred By: Yue Patel Electronically Signed By: Kerwin Medley
[2025-02-12 10:00] VITALS: BP 138/72; PULSE 88; RESP 22; O2SAT 97
[2025-02-12 11:35] LABS: Hematocrit 38.0 % (37.0-47.0); Hemoglobin 12.7 g/dl (12.0-16.0); Mean Corpuscular HGB Conc 33.4 g/dl (31.0-35.0); Mean Corpuscular Hemoglobin 29.3 pg (27.0-33.0); Mean Corpuscular Volume 87.6 fL (80.0-98.0); NRBC Abs Auto 0.000 X10*3/uL (0.0-0.012); NRBC Pct Auto 0.0 /100WBC (0.0-0.2); Platelet Count 190 X10*3/uL (160-400); Red Blood Count 4.34 X10*6/uL (4.20-5.50); White Blood Count 11.5 X10*3/uL (4.8-10.8)
[2025-02-12 11:47] LABS: Alanine Aminotransferase 17 U/L (0-31); Albumin Level 4.2 g/dL (3.5-5.0); Alkaline Phosphatase 104 U/L (39-117); Anion Gap 10 (12-20); Aspartate Amino Transferase 22 U/L (5-31); Blood Urea Nitrogen 18 mg/dL (9-16); Calcium 9.7 mg/dL (8.4-10.2); Carbon Dioxide 25 mmol/L (22-29); Chloride 110 mmol/L (96-108); Creatinine Clr Calc Pharmacy 71.6; Estimated Glomerular Filt Rate > 60; Potassium 3.3 mmol/L (3.3-5.1); Sodium 142 mmol/L (135-145); Total Protein 6.2 g/dL (6.5-8.0)
[2025-02-12 11:57] VITALS: BP 138/80; PULSE 72; RESP 18; O2SAT 98
[2025-02-12 12:18] LABS: Neutrophils Percent Manual 71 % (45-73)
[2025-02-12 12:20] LABS: Atypical Lymph Absolute Manual 0.1 x10*3/uL; Atypical Lymphs Percent Manual 1 % (0-6); Band Neutrophils Percent 25 % (3-5); Lymphocytes Absolute Manual 0.2 X10*3/uL (1.2-4.9); Lymphocytes Percent Manual 2 % (20-40); Metamyelocytes Absolute 0.1 X10*3/uL; Metamyelocytes Percent 1 %; Neutrophils Absolute Manual 11.0 X10*3/uL (2.0-8.3); RBC Morphology NORMAL; Toxic Vacuolation PRESENT
[2025-02-12 12:31] LABS: COVID-19 Test Negative (Negative); IDNOW Serial# 55D5AD1C
[2025-02-12 14:00] VITALS: BP 130/82; PULSE 82; RESP 18; O2SAT 96
[2025-02-12 14:47] LABS: Appearance Urine Clear; Glucose Urine UA Negative (Negative); PH 5.5 (5.0-9.0); Specific Gravity - Urine 1.010 (1.005-1.025); UMIC TRIGGER UACC YES
[2025-02-12 14:49] LABS: UACC Culture Trigger YES
[2025-02-12 15:09] LABS: Hematocrit 38.7 % (37.0-47.0); Hemoglobin 13.1 g/dl (12.0-16.0); Mean Corpuscular HGB Conc 33.9 g/dl (31.0-35.0); Mean Corpuscular Hemoglobin 29.3 pg (27.0-33.0); Mean Corpuscular Volume 86.6 fL (80.0-98.0); NRBC Abs Auto 0.000 X10*3/uL (0.0-0.012); NRBC Pct Auto 0.0 /100WBC (0.0-0.2); Platelet Count 203 X10*3/uL (160-400); Red Blood Count 4.47 X10*6/uL (4.20-5.50); White Blood Count 18.4 X10*3/uL (4.8-10.8)
[2025-02-12 16:09] LABS: Band Neutrophils Percent 6 % (3-5); Lymphocytes Absolute Manual 0.6 X10*3/uL (1.2-4.9); Lymphocytes Percent Manual 3 % (20-40); Neutrophils Absolute Manual 17.8 X10*3/uL (2.0-8.3); Neutrophils Percent Manual 91 % (45-73)
[2025-02-12 16:11] LABS: RBC Morphology NORMAL
[2025-02-12 16:12] LABS: Toxic Vacuolation PRESENT
[2025-02-12 16:20] VITALS: BP 127/73; PULSE 80; RESP 16; TEMP 36.7; O2SAT 98
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
--- NOTE | 2025-02-12 16:51 | HO.NURTONUR ---
Pt came into ED today w/ c/o genralized pain sudden onset. Pt arrived and was hyperventilating to the point of carpal pedal spasms and was medicated w/ ativan for anxiety. Pt was insisting this was a flare up of her MS. While in ED, repeat CBC increased to 18, and u/a showed UTI. Pt has since been tx'd w/ abx for uti. Pt is otherwise indep w/ adl's
[2025-02-12] MEDS: iohexoL 350 MG/ML 100 ML INFUS..BTL IV (17:01)
--- NOTE | 2025-02-12 17:26 | PHA.MEDREC ---
Addendum entered by Ana Ontiveros RPh 02/12/25 17:44: Reviewed by [facility] Original Note: Pharmacy Consult ? Medication Reconciliation Pharmacy has completed the medication reconciliation. Patient confirmed she is only taking Calcitriol 0.5 mg daily. last dose was today.
[2025-02-12] MEDS: Flu Vacc TS2025-26(6mo up)/PF 0.5 ML SYRINGE IM (19:39)
[2025-02-12] MEDS: 0.9 % Sodium Chloride Flush 3 ML SYRINGE IVFLUSH (19:45)
[2025-02-12 19:50] VITALS: BP 118/56; PULSE 111; RESP 19; TEMP 36.9; O2SAT 97
--- NOTE | 2025-02-13 01:16 | PM.EVENT ---
Event Note Date of Service: 02/13/25 Event Note: Preliminary blood culture x1 positive, pt already on ceftriaxone, vancomycin added pending final result Time Spent With Patient Time: Total time managing care of this patient today ____ minutes.
[2025-02-13] MEDS: vancomycin HCL 1,000 MG, vancomycin HCL 750 MG in 0.9 % Sodium Chloride 500 ML 267.5 MG IV (02:12)
[2025-02-13 03:18] VITALS: BP 108/55; PULSE 86; RESP 17; TEMP 36.7; O2SAT 97
--- NOTE | 2025-02-13 03:36 | PC.NURSE ---
This RN came back from break to patient c/o itchiness and upon examination patients face, chest and arms were red. No other complaints other than the itchiness. Dr. Mcdaniel notified and vancomycin infusion stopped. An order for IV Benadryl placed.
[2025-02-13 06:13] LABS: Hematocrit 37.9 % (37.0-47.0); Hemoglobin 12.8 g/dl (12.0-16.0); Mean Corpuscular HGB Conc 33.8 g/dl (31.0-35.0); Mean Corpuscular Hemoglobin 29.4 pg (27.0-33.0); Mean Corpuscular Volume 87.1 fL (80.0-98.0); NRBC Abs Auto 0.000 X10*3/uL (0.0-0.012); NRBC Pct Auto 0.0 /100WBC (0.0-0.2); Platelet Count 181 X10*3/uL (160-400); Red Blood Count 4.35 X10*6/uL (4.20-5.50); White Blood Count 13.8 X10*3/uL (4.8-10.8)
[2025-02-13 06:26] LABS: Anion Gap 10 (12-20); Blood Urea Nitrogen 18 mg/dL (9-16); Calcium 9.2 mg/dL (8.4-10.2); Carbon Dioxide 26 mmol/L (22-29); Chloride 108 mmol/L (96-108); Creatinine Clr Calc Pharmacy 78.6; Estimated Glomerular Filt Rate > 60; Potassium 3.4 mmol/L (3.3-5.1); Sodium 141 mmol/L (135-145)
[2025-02-13 07:46] VITALS: BP 111/52; PULSE 90; RESP 18; TEMP 36.3; O2SAT 94
[2025-02-13] MEDS: 0.9 % Sodium Chloride Flush 3 ML SYRINGE IVFLUSH ×2 (14:17→20:37)
--- NOTE | 2025-02-13 14:55 | HO.PM.IMPN ---
Subjective Subjective Date of Service: 02/13/25 Interval History: Patient's blood cultures turned out to be positive with Gram-negative bacteremia likely source Given UTI We will repeat this a.m. and daily 2 sets until it is negative Patient complains of bilateral hand numbness secondary to her MS-attempting baclofen Patient states her MSSA under control Patient meets inpatient level of care given bacteremia Review of Systems Review of Systems: Yes all other systems are reviewed and are negative Physical Exam Exam: Exam: General: AOx3, no acute distress, mild dysarthria noted-attributes it to her MS Resp: CTA bilaterally CVS: S1, S2, RRR Vital Signs: Vital Signs: Last Vital Signs Temp 97.4 F 02/13/25 07:46 Pulse 90 02/13/25 07:46 Resp 18 02/13/25 07:46 BP 111/52 L 02/13/25 07:46 Pulse Ox 94 02/13/25 07:46 O2 Del Method Room Air 02/13/25 07:46 BMI result Body Mass Index 24.1 Objective Data Active Medications Acetaminophen (Acetaminophen 325 Mg Tablet) 650 mg PO Q6H PRN PRN Reason: Pain, Mild 1-3,fever,headache Last Admin: 02/12/25 19:36 Dose: 650 mg Documented By: WILMAR Baclofen (Baclofen 10 Mg Tablet) 10 mg PO BID PENDING SALE TO [facility] Last Admin: 02/13/25 10:53 Dose: 10 mg Documented By: SWATHI Calcium Carbonate (Calcium Carbonate 750 Mg Tab.Chew) 750 mg PO Q4H PRN PRN Reason: Heartburn Enoxaparin Sodium (Enoxaparin Sodium 40 Mg/0.4 Ml Syringe) 40 mg SUBCUT Q24H PENDING SALE TO [facility] Last Admin: 02/12/25 18:23 Dose: 40 mg Documented By: FRANKLIN Ceftriaxone Sodium 1 gm/ (Sodium Chloride) 50 mls @ 100 mls/hr IV Q24H PENDING SALE TO [facility] Last Infusion: 02/13/25 14:54 Dose: Infused Documented By: SWATHI Doxycycline Hyclate 100 mg/ (Sodium Chloride) 250 mls @ 166.67 mls/hr IV BID PENDING SALE TO [facility] Last Infusion: 02/13/25 09:53 Dose: Infused Documented By: SWATHI Magnesium Hydroxide (Milk Of Magnesia 30 Ml Oral.Susp) 30 ml PO DAILY PRN PRN Reason: Constipation Melatonin (Melatonin 3 Mg Tablet) 6 mg PO BEDTIME PRN PRN Reason: Insomnia Ondansetron HCl (Ondansetron Hcl 4 Mg/2 Ml Vial) 4 mg IVPUSH Q8H PRN PRN Reason: Nausea and Vomiting Sodium Chloride (0.9 % Sodium Chloride Flush 3 Ml Syringe) 3 ml IVFLUSH QSHIFT PENDING SALE TO [facility] Last Admin: 02/13/25 14:17 Dose: 3 ml Documented By: SWATHI Labs 02/13/25 05:45 02/13/25 05:45 Labs: Laboratory Results - last 24 hr 02/12/25 02/13/25 14:56 05:45 MCV 86.6 87.1 MCH 29.3 29.4 MCHC 33.9 33.8 RDW 13.0 13.3 Plt Count 203 181 MPV 10.9 11.0 Immature Gran % (Auto) Cancelled Neut % (Auto) Cancelled Lymph % (Auto) Cancelled [place] % (Auto) Cancelled Eos % (Auto) Cancelled Baso % (Auto) Cancelled Lymph # (Auto) Cancelled [place] # (Auto) Cancelled Eos # (Auto) Cancelled Baso # (Auto) Cancelled Abs Immat Gran (auto) Cancelled Absolute Neuts (auto) Cancelled Absolute Nucleated RBC 0.000 0.000 Nucleated RBC % (auto) 0.0 0.0 Neutrophils % (Manual) 91 H Band Neutrophils % 6 H Lymphocytes % (Manual) 3 L Abs Neuts (Manual) 17.8 H Lymphocytes # (Manual) 0.6 L Toxic Vacuolation PRESENT Platelet Estimate NORMAL Plt Morphology Comment NORMAL RBC Morphology NORMAL Smear Tech's Comments MANUAL DIFF ESR 2 Anion Gap 10 L Estim Creat Clear Calc 78.6 Estimated GFR > 60 Random Glucose 107 Lactic Acid 1.3 Calcium 9.2 C-Reactive Protein 2.03 H Microbiology Microbiology Results: Microbiology 02/12/25 14:56 Urine Culture - Preliminary Urine clean catch - Clean Catch Midstream Culture in progress. 02/12/25 14:56 Blood Culture - Preliminary Blood - Venous Prelim: GNR Gram Stain only 02/12/25 14:56 Blood Culture - Preliminary Blood - Venous Prelim: GNR Gram Stain only Assessment and Plan (1) Gram-negative bacteremia: Status: Acute Plan Patient is a very pleasant 59-year-old female with past medical history of multiple sclerosis, hypercholesterolemia, and eczema who presented to the ED on 02/12/2025 with acute onset pain, paresthesias in her right greater than left hand. She was noted to have Gram-negative bacteremia and is being worked up regarding the source which is likely genetic do urinary. Gram-negative bacteremia-likely source urinary bladder incontinence Imaging suggestive of nephrolithiasis, multiple polyps Imaging suggestive of possibly passing nephrolithiasis which could have triggered her UTI which likely led to her Gram-negative bacteremia We will repeat blood cultures this a.m. and monitor until 2 sets are negative until day 5 , follow sepsis workup Patient hemodynamically stable Continue IV antibiotics Rocephin Paresthesias right greater than left-initiate baclofen Fibroids, ovarian cyst-outpatient manager company follow-up MS patient states she is in remission follows outpatient neurology, thankfully patient does not appear to have any mobility issues and hence does not require any PTOT DVT prophylaxis with Lovenox while inpatient This note is constructed using voice recognition software. While every effort has been made to ensure accuracy, load checker errors may have been included. Patient disposition-patient needs inpatient monitoring given Gram-negative bacteremia and risk of decompensation. Quality Stroke Does the patient have a stroke diagnosis?: No VTE Prior VTE?: No VTE Risk Level:: Medical - moderate - high VTE Device Contraindication: Treatment Not Indicated VTE Drug Contraindication: N/A - Med Ordered
[2025-02-13 15:20] VITALS: BP 127/56; PULSE 93; RESP 17; TEMP 36.4; O2SAT 94
--- NOTE | 2025-02-13 15:24 | MHC.CM.PN ---
Female 59 DX UTI with Sepsis PMH MS She lives alone. She is independent with all functional mobility. No DME PCP DR FLANAGAN A new HCP has been documented + scanned into EMR. DP home self care. Her dtr will provide transportation home.
[2025-02-13 19:23] VITALS: BP 118/59; PULSE 87; RESP 17; TEMP 36.8; O2SAT 97
[2025-02-14 03:40] VITALS: BP 124/62; PULSE 75; RESP 18; TEMP 36.4; O2SAT 96
--- NOTE | 2025-02-14 04:07 | PC.NURSE ---
At 0340 patient stated they felt generalized weakness and weakness to her left leg. Patient is concerned it could be a multiple sclerosis flare up. Earlene Mcdaniel notified. Vital signs are within normal limits.
--- NOTE | 2025-02-14 07:18 | HO.PM.IMPN ---
Subjective Subjective Date of Service: 02/14/25 Interval History: Repeat blood cultures are negative Awaiting sepsis workup and sensitivities and we will deescalate antibiotics accordingly Review of Systems Review of Systems: Yes all other systems are reviewed and are negative Physical Exam Exam: Exam: General: AOx3, no acute distress, mild dysarthria noted-attributes it to her MS Resp: CTA bilaterally CVS: S1, S2, RRR Vital Signs: Vital Signs: Last Vital Signs Temp 97.5 F 02/14/25 03:40 Pulse 75 02/14/25 03:40 Resp 18 02/14/25 03:40 BP 124/62 02/14/25 03:40 Pulse Ox 96 02/14/25 03:40 O2 Del Method Room Air 02/14/25 03:40 BMI result Body Mass Index 24.1 Objective Data Active Medications Acetaminophen (Acetaminophen 325 Mg Tablet) 650 mg PO Q6H PRN PRN Reason: Pain, Mild 1-3,fever,headache Last Admin: 02/12/25 19:36 Dose: 650 mg Documented By: WILMAR Baclofen (Baclofen 10 Mg Tablet) 10 mg PO BID [facility] Last Admin: 02/13/25 20:30 Dose: 10 mg Documented By: LORA Calcium Carbonate (Calcium Carbonate 750 Mg Tab.Chew) 750 mg PO Q4H PRN PRN Reason: Heartburn Enoxaparin Sodium (Enoxaparin Sodium 40 Mg/0.4 Ml Syringe) 40 mg SUBCUT Q24H [facility] Last Admin: 02/13/25 15:47 Dose: 40 mg Documented By: SWATHI Ceftriaxone Sodium 1 gm/ (Sodium Chloride) 50 mls @ 100 mls/hr IV Q24H [facility] Last Infusion: 02/13/25 14:54 Dose: Infused Documented By: SWATHI Doxycycline Hyclate 100 mg/ (Sodium Chloride) 250 mls @ 166.67 mls/hr IV BID [facility] Last Infusion: 02/13/25 22:24 Dose: Infused Documented By: LORA Magnesium Hydroxide (Milk Of Magnesia 30 Ml Oral.Susp) 30 ml PO DAILY PRN PRN Reason: Constipation Melatonin (Melatonin 3 Mg Tablet) 6 mg PO BEDTIME PRN PRN Reason: Insomnia Ondansetron HCl (Ondansetron Hcl 4 Mg/2 Ml Vial) 4 mg IVPUSH Q8H PRN PRN Reason: Nausea and Vomiting Sodium Chloride (0.9 % Sodium Chloride Flush 3 Ml Syringe) 3 ml IVFLUSH QSHIFT [facility] Last Admin: 02/13/25 20:37 Dose: 3 ml Documented By: LORA Labs 02/13/25 05:45 02/13/25 05:45 Microbiology Microbiology Results: Microbiology 02/12/25 14:56 Urine Culture - Preliminary Urine clean catch - Clean Catch Midstream Culture in progress. 02/12/25 14:56 Blood Culture - Preliminary Blood - Venous Prelim: GNR Gram Stain only 02/12/25 14:56 Blood Culture - Preliminary Blood - Venous Prelim: GNR Gram Stain only Assessment and Plan (1) Gram-negative bacteremia: Status: Acute Plan Patient is a very pleasant 59-year-old female with past medical history of multiple sclerosis, hypercholesterolemia, and eczema who presented to the ED on 02/12/2025 with acute onset pain, paresthesias in her right greater than left hand. She was noted to have Gram-negative bacteremia and is being worked up regarding the source which is likely genetic do urinary. Gram-negative bacteremia-likely source urinary bladder incontinence Imaging suggestive of nephrolithiasis, multiple polyps Imaging suggestive of possibly passing nephrolithiasis which could have triggered her UTI which likely led to her Gram-negative bacteremia We will repeat blood cultures this a.m. and monitor until 2 sets are negative until day 5 , follow sepsis workup Patient hemodynamically stable Continue IV antibiotics Rocephin Paresthesias right greater than left-initiate baclofen Fibroids, ovarian cyst-outpatient medical radiation dosimetrist follow-up MS patient states she is in remission follows outpatient neurology, thankfully patient does not appear to have any mobility issues and hence does not require any PTOT DVT prophylaxis with Lovenox while inpatient This note is constructed using voice recognition software. While every effort has been made to ensure accuracy, wic site coordinator errors may have been included. Patient disposition-patient needs inpatient monitoring given Gram-negative bacteremia and risk of decompensation. Quality Stroke Does the patient have a stroke diagnosis?: No VTE Prior VTE?: No VTE Risk Level:: Medical - moderate - high VTE Device Contraindication: Treatment Not Indicated VTE Drug Contraindication: N/A - Med Ordered
[2025-02-14] MEDS: 0.9 % Sodium Chloride Flush 3 ML SYRINGE IVFLUSH ×2 (07:26→20:22)
[2025-02-14 07:55] VITALS: BP 128/68; PULSE 74; RESP 18; TEMP 36.1; O2SAT 97
[2025-02-14 15:08] VITALS: BP 137/69; PULSE 72; RESP 18; TEMP 36.4; O2SAT 98
--- NOTE | 2025-02-14 16:05 | MHC.CM.PN ---
pter rounds pt not ready for dc waiting blood cultires
[2025-02-14 20:00] VITALS: BP 130/61; PULSE 71; RESP 20; TEMP 36.5; O2SAT 97
[2025-02-15 04:00] VITALS: BP 125/60; PULSE 82; RESP 18; TEMP 36.7; O2SAT 96
[2025-02-15] MEDS: 0.9 % Sodium Chloride Flush 3 ML SYRINGE IVFLUSH (07:26)
[2025-02-15 07:40] VITALS: BP 130/63; PULSE 67; RESP 16; TEMP 36.1; O2SAT 98
--- NOTE | 2025-02-15 09:06 | PM.DS ---
DS: Providers Provider Date of Service: 02/15/25 Date of admission: 02/12/25 16:30 Date of discharge: 02/15/25 Primary care physician: Teo Almonte MD DS: Diagnosis Discharge Diagnosis (1) Gram-negative bacteremia: Status: Acute DS: Summary Hospital Course Hospital Course: from initial hpi: 59-year-old female with a hx of MS, currently in remission, presenting to the emergency department with complaint of pain to all her extremities as well as paresthesias to her right hand/wrist. Reports feeling anxious about her symptoms, but not matching with an MS flare. Patient denied chest pain, nausea, vomiting, diarrhea, fever, chills. UA was positive and patient was started on rocephin. She will be admitted for management of sepsis secondary to UTI. hospital course: Secondary to urinary tract infection. Urine and blood culture grew E coli. She was treated ceftriaxone sepsis resolved. Repeat cultures from 02/13/2025 are negative to date. On discharge we will continue 10 more days of cefuroxime. For history of MS in remission she remained stable. Time Attestation Discharge Coordination Time (in mins): 33 Quality: Safe Use of Opioids Does Pt have an Active Cancer Diagnosis on the Problem List?: No Quality: Stroke Does the patient have a stroke diagnosis?: No Physical Exam Exam: Exam: General: AO X 3, no acute distress Resp: CTA bilateral, no accessory muscles used CVS: S1,S2,RRR GI: soft, non tender, non distended Neuro: motor grossly intact, alert Psych: appropriate affect, appropriate insight Vital Signs: Vital Signs: Last Vital Signs Temp 96.9 F 02/15/25 07:40 Pulse 67 02/15/25 07:40 Resp 16 02/15/25 07:40 BP 130/63 02/15/25 07:40 Pulse Ox 98 02/15/25 07:40 O2 Del Method Room Air 02/15/25 07:40 BMI result Body Mass Index 24.1 DS: Data Data Completed and Pending Labs on day of discharge: Preliminary micro results at discharge 02/12/25 14:56 Urine Culture - Preliminary Urine clean catch - Clean Catch Midstream Escherichia coli 02/13/25 10:36 Blood Culture - Preliminary Blood - Venous No growth after 24 hours. 02/13/25 10:36 Blood Culture - Preliminary Blood - Venous No growth after 24 hours. Blood Culture - Preliminary No growth after 24 hours. Discharge Plan Discharge Anticipated Discharge Date/Time: 02/15/25 09:05 Patient Disposition: Home, Self-Care Discharge Diagnosis: sepsis uti bacteremia Referrals: Po,Teo Harris MD [Primary Care Provider, Internal Medicine] - 1 Week Discharge Medications: New cefuroxime axetil 500 mg tablet 500 mg PO BID Qty: 20 0RF Continued calcitriol 0.5 mcg capsule 0.5 mcg PO DAILY Qty: 90 0RF Discharge Orders: Discharge Order (Routine); Ordered 02/15/25 Ordered By: Woodrow Mckinney Diet: Advance to usual diet Activity on Discharge: As tolerated Stand Alone Forms: Patient Portal Discharge page, Work/School Release Print Language: [place] Care Plan Goals: recovery Health Concerns: ecoli bacteremia Plan of Treatment: 10 more days of ceftin Assessment: see above
--- NOTE | 2025-02-15 09:26 | MHC.CM.PN ---
DP: PT HAS BEEN MEDICALLY CLEARED FOR DC HOME, NO SERVICES. DAUGHTER WILL TRANSPORT
== END 2025-02-15 10:06 | disposition home or self-care (01) | DRG 720 ==
LOC: HO.ED 16:19 → HO.EDOVER 16:30 → HO.S3 16:49
PROVIDERS: Registered Nurse Emergency; Admitting Provider Nurse Practitioner Acute Care; Emergency Provider Emergency Medicine; PCP Internal Medicine; Visit Provider Internal Medicine
DX: A41.9 Sepsis, unspecified organism (principal); D25.2 Subserosal leiomyoma of uterus; G35.D Multiple sclerosis, unspecified; N39.0 Urinary tract infection, site not specified; B96.20 Unspecified Escherichia coli [E. coli] as the cause of diseases classified elsewhere; L27.0 Generalized skin eruption due to drugs and medicaments taken internally; T36.8X5A Adverse effect of other systemic antibiotics, initial encounter; Z20.822 Contact with and (suspected) exposure to COVID-19; Z87.891 Personal history of nicotine dependence; Z79.899 Other long term (current) drug therapy
CPT/HCPCS: 36415; 71046; 74177; 80048; 80053; 81001; 83605; 85007; 85025; 85027; 85652; 86140; 87040; 87077; 87086; 87088; 87186; 87205; 87635; 90656; 93005; 99285; J0696; J1200; J1271; J1650; J2405; J3374; Q9967

== ENCOUNTER → 2025-02-12 09:54 | Outpatient (BNV) | payer OTHER, SELFPAY | PROVIDERS: Admitting Provider Nurse Practitioner Acute Care; Emergency Provider Emergency Medicine; PCP Internal Medicine; Visit Provider Internal Medicine Cardiovascular Disease | DX: R00.0 Tachycardia, unspecified (principal) | CPT/HCPCS: 93010 ==

== ENCOUNTER → 2025-02-12 12:39 | Outpatient (BNV) | payer OTHER, SELFPAY | PROVIDERS: Emergency Provider Emergency Medicine; PCP Internal Medicine; Visit Provider Radiology Diagnostic Radiology | DX: D25.9 Leiomyoma of uterus, unspecified (principal); N20.0 Calculus of kidney; N28.1 Cyst of kidney, acquired; K76.89 Other specified diseases of liver; R79.9 Abnormal finding of blood chemistry, unspecified | CPT/HCPCS: 71046; 74177 ==

== ENCOUNTER → 2025-02-12 16:30 | Outpatient (BNV) | payer OTHER, SELFPAY | PROVIDERS: Admitting Provider Nurse Practitioner Acute Care; Emergency Provider Emergency Medicine; PCP Internal Medicine; Visit Provider Physician Assistant | DX: R78.81 Bacteremia (principal) | CPT/HCPCS: 99223; 99232; 99239; 99499 ==

== ENCOUNTER 2025-02-23 10:38 | Outpatient (AMB) | payer OTHER, SELFPAY ==
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
[2025-02-23 10:47] VITALS: BP 132/70; PULSE 78; TEMP 36.3; O2SAT 99; BMI 24.3
== END 2025-02-23 11:25 | disposition home or self-care (01) ==
LOC: HO.HMCH 10:39
PROVIDERS: PCP Internal Medicine; Visit Provider Nurse Practitioner Family
DX: R78.81 Bacteremia (principal)

== ENCOUNTER → 2025-02-23 10:38 | Outpatient (BNVA) | payer OTHER, SELFPAY | PROVIDERS: PCP Internal Medicine; Visit Provider Nurse Practitioner Family | DX: R78.81 Bacteremia (principal) | CPT/HCPCS: 99495 ==